=== PATIENT | male | born 1970 | race Caucasian/White ===

== ENCOUNTER 2021-03-28 09:00 | Emergency (ER) | payer OTHER, SELFPAY ==
[2021-03-28] VITALS (7 sets, daily range): BP systolic 130–165; BP diastolic 72–111; PULSE 65–96; RESP 18–20; TEMP 36.6–36.7; O2SAT 94–98; BMI 40.1; BMI 36.9; BMI 38.0; BMI 37.9
--- NOTE | 2021-03-28 09:20 | XR_ITS ---
PROCEDURE: XR HIP LT 2-3V W/PELVIS CLINICAL INDICATION: PAIN COMPARISON: No exams were available for comparison FINDINGS: No fracture or dislocation is evident. Mild degenerative change of both hip joints. No lytic or blastic change. Unremarkable soft tissues. IMPRESSION: Mild degenerative change of both hip joints. No acute fracture or dislocation of the pelvis or hips. Dictated by: Merlin Encinas 03/28/2021 09:58 Merlin Encinas in [place] 03/28/2021 09:58
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
[2021-03-28 10:32] LABS: Basophils % 0.4 % (0.1-2.0); Eosinophils # 0.1 K/mm3 (0.0-0.4); Eosinophils % 1.3 % (0.1-12.0); Hematocrit 44.5 % (42.0-52.0); Hemoglobin 15.6 g/dL (14.1-18.0); Lymphocytes % 24.6 % (10-50); Mean Corpuscular HGB Conc 35.1 g/dL (31.8-35.4); Mean Corpuscular Hemoglobin 32.1 pg (27.0-31.2); Mean Corpuscular Volume 91.6 fl (80-94); Mean Platelet Volume 7.6 fl (7.4-10.4); Monocytes # 0.6 K/mm3 (0.1-1.0); Monocytes % 7.6 % (1.7-9.3); Neutrophils # 5.4 K/mm3 (1.8-7.8); Neutrophils % 66.1 % (37.0-80.0); Platelet Count 283 K/mm3 (142-424); Red Blood Count 4.86 M/mm3 (4.60-6.20); Red Cell Distribution Width 12.9 % (11.5-17.5); White Blood Count 8.2 K/mm3 (4.8-10.8)
[2021-03-28 10:33] LABS: Chloride 105 mmol/L (98-107); Potassium 4.2 mmoL/L (3.5-5.1); Sodium 136 mmol/L (136-145)
[2021-03-28 10:36] LABS: Anion Gap 9.2 mEq/L (5-15); Blood Urea Nitrogen 15 mg/dl (9-20); Carbon Dioxide 26 mmol/L (22.0-30.0); Creatinine Clearance Estimated 162 mL/min (50-200); Estimated Glomerular Filt Rate 80 ml/min (>60); GFR (African American) 97 ML/MIN (>60)
[2021-03-28 10:37] LABS: Calcium 8.8 mg/dl (8.4-10.2); Glucose 111 mg/dl (74-100)
--- NOTE | 2021-03-28 11:05 | PC.NURSE ---
WHILE DISCHARGING PATIENT, STATED THEY WERE CONFUSED AND EXPRESSED CONCERN ABOUT NOT KNOWING WHERE PATIENT'S HIP PAIN IS COMING FROM. NEONATAL SPECIALIST SPOKE WITH PATIENT AND AT THIS TIME AND SUGGESTED BEING TRANSFERRED TO ER FOR FURTHER EVALUATION. REPORT GIVEN TO Meka MANUEL RN
--- NOTE | 2021-03-28 11:28 | CT_ITS ---
PROCEDURE: CT HIP LT W CON CLINICAL HISTORY: Left hip pain COMPARISON: Plain films from earlier the same day TECHNIQUE: Axial images obtained with sagittal and coronal reformats. All CT scans at the facility use one or more dose reduction, viz: automated exposure control, ma/kV adjustment per patient size (including targeted exams where dose is matched to indication, i.e. head), or iterative reconstruction technique. FINDINGS: There are a few small bilateral groin lymph nodes present. No pelvic soft tissue abnormality. There are mild degenerative changes of both hip joints. No acute fracture or dislocation. No lytic or blastic lesions. No focal fluid collections are seen. There are minimal inflammatory changes in subcutaneous fat about the left hip consistent with minimal cellulitis changes. No focal fluid collection is seen to suggest abscess. Visualized bladder is normal. A few central prostate gland calcifications are present. IMPRESSION: Mild degenerative change of both hip joints. No focal fluid collection is seen to suggest abscess. Minimal inflammatory changes about the left hip consistent with minimal cellulitis changes. A few small bilateral groin lymph nodes likely reactive. Dictated by: Merlin Encinas 03/28/2021 12:26 Merlin Encinas in [place] 03/28/2021 12:26
--- NOTE | 2021-03-28 11:43 | PC.NURSE ---
pt to rad.
== END 2021-03-28 13:24 | disposition home or self-care (01) ==
LOC: UTC 10:53 → ER 11:14
PROVIDERS: Nurse Practitioner Family; Emergency Provider Emergency Medicine; PCP Family Medicine
DX: L03.116 Cellulitis of left lower limb (principal)
CPT/HCPCS: 73502; 73701; 80048; 85025; 96374; 96375; 99282; Q9967

== ENCOUNTER 2021-08-19 10:26 | Emergency (ER) | payer SELFPAY ==
[2021-08-19 10:40] VITALS: BP 182/99; PULSE 81; RESP 16; TEMP 36.6; O2SAT 96; BMI 36.1
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
[2021-08-19 11:07] VITALS: BP 198/107; PULSE 87; RESP 16; TEMP 36.6; O2SAT 97; BMI 36.1
--- NOTE | 2021-08-19 11:09 | HMH.EDGENADL ---
ED Disposition Clinical Impression: Nasal fracture Qualifiers: Encounter type: initial encounter Fracture type: closed Qualified Code(s): S02.2XXA - Fracture of nasal bones, initial encounter for closed fracture Facial contusion Qualifiers: Encounter type: initial encounter Qualified Code(s): S00.83XA - Contusion of other part of head, initial encounter Disposition: Still a Patient Condition on Discharge: Good Instructions: DI for Nose Fracture Additional Instructions: Ice 20 minutes 3-4 times a day for swelling and pain. Tylenol or ibuprofen for pain. Follow-up with ENT, Dr. Branch, call for appointment. Referrals: Provider,MD Arjun [Primary Care Provider] - Rodolfo Branch MD [Staff Physician] - - Critical Care Critical Care Time: No Attestation: On 08/19/21, the high probability of a clinically significant, sudden or life threatening deterioration of the following system(s) required my full and direct attention, intervention and personal management. The time I documented below is in addition to time spent performing reported procedures but includes the following listed in this critical care notation. Medical Decision Making - Jm Inquiry Pt receiving controlled substance: No Vital Signs: 08/19/21 10:40 08/19/21 11:07 Temperature 97.8 F 97.8 F Temperature Source Oral Oral Pulse Rate [Left] 81 87 Respiratory Rate 16 16 Blood Pressure [Right Arm] 182/99 H 198/107 H Blood Pressure Mean [Right Arm] 126 137 Blood Pressure Source [Right Arm] Automatic Cuff Blood Pressure Position [Right Arm] Sitting 02 Sat by Pulse Oximetry 96 97 Oxygen Delivery Method Room Air - CT Data CT Scan: Head, C-Spine, Other (facial) Time Received: 12:[address] Reviewed: Yes: I have viewed the radiologist's interpretation Findings Narrative: PROCEDURE: CT HEAD/BRAIN WO CON CLINICAL INDICATION: facial trauma from fall COMPARISON: CT HDWO CT HEAD W/O CONTRAST from 10/12/2015 TECHNIQUE: Axial images obtained. All CT scans at the facility use one or more dose reduction, viz: automated exposure control, ma/kV adjustment per patient size (including targeted exams where dose is matched to indication, i.e. head), or iterative reconstruction technique. FINDINGS: No midline shift, mass effect, intracranial hemorrhage, hydrocephalus, or extra-axial fluid collection is evident. Low-density changes are present in the right inferior colliculus to the cerebral peduncle. This is nonspecific and could be due to an old area of infarction. Hypodensity is also present in the left basal ganglia not significantly changed and could be due to an old small lacunar infarction or choroidal fissure cyst. No acute calvarial fracture. The calvarium has an unremarkable appearance. No mastoid effusion. No sinus air-fluid level. IMPRESSION: No acute intracranial findings. Low-density changes in the midbrain on the right as described above which could be related to an old infarction. Multiple sclerosis could also cause this appearance. Nonemergent MRI may provide further evaluation. Dictated by: Vinayak Mae MD 08/19/2021 12:40 Vinayak Mae MD in [place] 08/19/2021 12:40 PROCEDURE: CT CERVICAL SPINE WO CON CLINICAL INDICATION: facial trauma from fall COMPARISON: CT CSWO CT CERVICAL SPINE W/O CONT from 10/12/2015 TECHNIQUE: Axial images obtained with sagittal and coronal reformats. All CT scans at the facility use one or more dose reduction, viz: automated exposure control, ma/kV adjustment per patient size (including targeted exams where dose is matched to indication, i.e. head), or iterative reconstruction technique. Axial spiral CT scanning performed of the cervical spine beginning at the base of the skull and continuing to the upper T-spine. 3-D multiplanar reconstruction with 3-D manipulation of volumetric data set in image rendering was completed by the radiologist and/o
--- NOTE | 2021-08-19 11:12 | PC.NURSE ---
JASKARAN ZHANG at
--- NOTE | 2021-08-19 11:14 | CT_ITS ---
PROCEDURE: CT FACIAL BONES WO CON CLINICAL HISTORY: facial trauma from fall COMPARISON: CT HDWO CT HEAD W/O CONTRAST from 10/12/2015 TECHNIQUE: Axial images obtained with sagittal and coronal reformats. All CT scans at the facility use one or more dose reduction, viz: automated exposure control, ma/kV adjustment per patient size (including targeted exams where dose is matched to indication, i.e. head), or iterative reconstruction technique. FINDINGS: Nondisplaced fracture involves the anterior aspect of the nasal bone. There is moderate leftward nasal septal deviation. No septal fracture apparent. Septal spur projects toward the left with narrowing of the left nasal canal. There is a small right spenser bullosa. Mild mucosal thickening is present in the frontal ethmoid region. No sinus air-fluid level. IMPRESSION: Nondisplaced nasal bone fracture. Leftward nasal septal deviation with septal spur and narrowing of the left nasal canal. Dictated by: Vinayak Mae MD 08/19/2021 12:49 Vinayak Mae MD in [place] 08/19/2021 12:49
--- NOTE | 2021-08-19 11:14 | CT_ITS ---
PROCEDURE: CT CERVICAL SPINE WO CON CLINICAL INDICATION: facial trauma from fall COMPARISON: CT CSWO CT CERVICAL SPINE W/O CONT from 10/12/2015 TECHNIQUE: Axial images obtained with sagittal and coronal reformats. All CT scans at the facility use one or more dose reduction, viz: automated exposure control, ma/kV adjustment per patient size (including targeted exams where dose is matched to indication, i.e. head), or iterative reconstruction technique. Axial spiral CT scanning performed of the cervical spine beginning at the base of the skull and continuing to the upper T-spine. 3-D multiplanar reconstruction with 3-D manipulation of volumetric data set in image rendering was completed by the radiologist and/or technologist with the supervision of the radiologist on independent workstation. FINDINGS: There is non fusion of the anterior arch of C1 and the posterior arch of C1. No acute fracture or dislocation is evident. There is straightening of the cervical lordosis which could be due to patient positioning or muscle spasm. Lung apices are clear. No prevertebral soft tissue swelling. IMPRESSION: Cervical spine intact with no fracture nor subluxation. Dictated by: Vinayak Mae MD 08/19/2021 12:43 Vinayak Mae MD in [place] 08/19/2021 12:43
--- NOTE | 2021-08-19 11:14 | CT_ITS ---
PROCEDURE: CT HEAD/BRAIN WO CON CLINICAL INDICATION: facial trauma from fall COMPARISON: CT HDWO CT HEAD W/O CONTRAST from 10/12/2015 TECHNIQUE: Axial images obtained. All CT scans at the facility use one or more dose reduction, viz: automated exposure control, ma/kV adjustment per patient size (including targeted exams where dose is matched to indication, i.e. head), or iterative reconstruction technique. FINDINGS: No midline shift, mass effect, intracranial hemorrhage, hydrocephalus, or extra-axial fluid collection is evident. Low-density changes are present in the right inferior colliculus to the cerebral peduncle. This is nonspecific and could be due to an old area of infarction. Hypodensity is also present in the left basal ganglia not significantly changed and could be due to an old small lacunar infarction or choroidal fissure cyst. No acute calvarial fracture. The calvarium has an unremarkable appearance. No mastoid effusion. No sinus air-fluid level. IMPRESSION: No acute intracranial findings. Low-density changes in the midbrain on the right as described above which could be related to an old infarction. Multiple sclerosis could also cause this appearance. Nonemergent MRI may provide further evaluation. Dictated by: Vinayak Mae MD 08/19/2021 12:40 Vinayak Mae MD in [place] 08/19/2021 12:40
--- NOTE | 2021-08-19 11:16 | PC.NURSE ---
notified CT of orders on pt.
--- NOTE | 2021-08-19 11:57 | PC.NURSE ---
pt return from CT
[2021-08-19 13:21] VITALS: BP 177/101; PULSE 77; RESP 17; TEMP 37.1; O2SAT 96
== END 2021-08-19 13:21 | disposition still patient (30) ==
LOC: UTC 11:04 → ER 11:05
PROVIDERS: Emergency Provider Physician Assistant
DX: S02.2XXA Fracture of nasal bones, initial encounter for closed fracture (principal); S00.83XA Contusion of other part of head, initial encounter; W01.198A Fall on same level from slipping, tripping and stumbling with subsequent striking against other object, initial encounter; Y92.73 Farm field as the place of occurrence of the external cause
CPT/HCPCS: 70450; 70486; 72125; 99282

== ENCOUNTER → 2022-05-10 06:11 | Outpatient (CLI) | payer SELFPAY ==
[2022-05-09 21:35] LABS: Alanine Aminotransferase 33 U/L (12-78); Albumin Level 3.4 g/dl (3.5-5.0); Albumin/Globulin Ratio 1.3 (1.1-1.8); Alkaline Phosphatase 76 U/L (38-126); Anion Gap 8.1 mEq/L (5-15); Aspartate Amino Transferase 31 U/L (17-59); Blood Urea Nitrogen 12 mg/dl (9-20); Calcium 8.9 mg/dl (8.4-10.2); Carbon Dioxide 28 mmol/L (22.0-30.0); Chloride 106 mmol/L (98-107); Estimated Glomerular Filt Rate 71 ml/min (>60); GFR (African American) 86 ML/MIN (>60); Globulin 2.7 g/dL (1.3-3.2); Glucose 125 mg/dl (74-100); Potassium 4.1 mmoL/L (3.5-5.1); Sodium 138 mmol/L (136-145); Total Protein,Serum 6.1 g/dl (6.3-8.2)
[2022-05-09 21:36] LABS: Bilirubin,Total < 0.1 mg/dl (0.2-1.3)
== END ==
LOC: LAB.DROPOF 06:11
PROVIDERS: PCP Family Medicine; Visit Provider Family Medicine
DX: I10 Essential (primary) hypertension (principal)
CPT/HCPCS: 80053

== ENCOUNTER → 2022-11-17 11:00 | Outpatient (CLI) | payer SELFPAY ==
[2022-11-17 19:06] LABS: Alanine Aminotransferase 45 U/L (12-78); Albumin/Globulin Ratio 1.3 (1.1-1.8); Alkaline Phosphatase 58 U/L (38-126); Aspartate Amino Transferase 39 U/L (17-59); Bilirubin,Total 0.4 mg/dl (0.2-1.3); Blood Urea Nitrogen 14 mg/dl (9-20); Calcium 8.9 mg/dl (8.4-10.2); Carbon Dioxide 29 mmol/L (22.0-30.0); Chloride 103 mmol/L (98-107); Estimated Glomerular Filt Rate 71 ml/min (>60); GFR (African American) 86 ML/MIN (>60); Globulin 3.1 g/dL (1.3-3.2); Glucose 92 mg/dl (74-100); Sodium 137 mmol/L (136-145); Total Protein,Serum 7.1 g/dl (6.3-8.2)
== END ==
LOC: LAB.DROPOF 12-12 23:58
PROVIDERS: PCP Family Medicine; Visit Provider Family Medicine
DX: I10 Essential (primary) hypertension (principal)
CPT/HCPCS: 80053

== ENCOUNTER → 2023-07-14 09:06 | Outpatient (CLI) | payer SELFPAY ==
[2023-07-13 19:04] LABS: Alanine Aminotransferase 51 U/L (12-78); Albumin Level 3.9 g/dl (3.5-5.0); Albumin/Globulin Ratio 1.2 (1.1-1.8); Alkaline Phosphatase 68 U/L (38-126); Anion Gap 12.6 mEq/L (5-15); Aspartate Amino Transferase 40 U/L (17-59); Bilirubin,Total 0.4 mg/dl (0.2-1.3); Blood Urea Nitrogen 16 mg/dl (9-20); Calcium 9.2 mg/dl (8.4-10.2); Carbon Dioxide 29 mmol/L (22.0-30.0); Chloride 101 mmol/L (98-107); Chol/HDL Ratio 5.9 (1-3.5); Cholesterol 148 mg/dl (140-200); Estimated Glomerular Filt Rate 64 ml/min (>60); GFR (African American) 77 ML/MIN (>60); Globulin 3.2 g/dL (1.3-3.2); Glucose 105 mg/dl (74-100); HDL Cholesterol 25 mg/dl (40-60); Potassium 4.6 mmoL/L (3.5-5.1); Sodium 138 mmol/L (136-145); Total Protein,Serum 7.1 g/dl (6.3-8.2); Triglycerides 134 mg/dl (30-150); VLDL Cholesterol 27 mg/dL (0-40)
[2023-07-13 19:22] LABS: Direct LDL Cholesterol 93.21 mg/dL (100-129)
[2023-07-13 19:35] LABS: Prostate Specific Ag Screen 0.6 ng/ml (0.0-4.0); Thyroid Stimulating Hormone 1.89 uIU/mL (0.465-4.68)
[2023-07-13 19:56] LABS: Hemoglobin A1C 5.7 % (4.0-6.0)
== END ==
LOC: LAB.DROPOF 09:08
PROVIDERS: PCP Family Medicine; Visit Provider Nurse Practitioner
DX: E78.5 Hyperlipidemia, unspecified (principal); I10 Essential (primary) hypertension; R73.9 Hyperglycemia, unspecified; Z12.5 Encounter for screening for malignant neoplasm of prostate
CPT/HCPCS: 80053; 80061; 83036; 84443; G0103

== ENCOUNTER → 2023-07-14 09:22 | Outpatient (CLI) | payer SELFPAY | PROVIDERS: PCP Family Medicine; Visit Provider Family Medicine | DX: R73.9 Hyperglycemia, unspecified (principal); I10 Essential (primary) hypertension; E78.5 Hyperlipidemia, unspecified; Z12.5 Encounter for screening for malignant neoplasm of prostate ==

== ENCOUNTER → 2023-09-04 14:02 | Outpatient (CLI) | payer SELFPAY ==
[2023-09-04 19:07] LABS: Alanine Aminotransferase 53 U/L (12-78); Albumin/Globulin Ratio 1.4 (1.1-1.8); Alkaline Phosphatase 76 U/L (38-126); Anion Gap 10.7 mEq/L (5-15); Aspartate Amino Transferase 37 U/L (17-59); Bilirubin,Total 0.2 mg/dl (0.2-1.3); Blood Urea Nitrogen 19 mg/dl (9-20); Calcium 8.9 mg/dl (8.4-10.2); Carbon Dioxide 28 mmol/L (22.0-30.0); Chloride 102 mmol/L (98-107); Estimated Glomerular Filt Rate 71 ml/min (>60); GFR (African American) 85 ML/MIN (>60); Globulin 2.9 g/dL (1.3-3.2); Glucose 104 mg/dl (74-100); Potassium 3.7 mmoL/L (3.5-5.1); Sodium 137 mmol/L (136-145); Total Protein,Serum 6.9 g/dl (6.3-8.2)
== END ==
LOC: LAB.DROPOF 09-05 14:02
PROVIDERS: PCP Family Medicine; Visit Provider Family Medicine
DX: I10 Essential (primary) hypertension (principal)
CPT/HCPCS: 80053

== ENCOUNTER 2024-03-13 09:34 | Outpatient (CLI) | payer SELFPAY ==
[2024-03-13 17:58] LABS: Basophils # 0.1 K/mm3 (0-0.2); Basophils % 0.8 % (0.1-2.0); Eosinophils # 0.1 K/mm3 (0.0-0.4); Eosinophils % 1.3 % (0.1-12.0); Hematocrit 49.9 % (42.0-52.0); Hemoglobin 16.4 g/dL (14.1-18.0); Lymphocytes # 2.4 K/mm3 (0.7-4.5); Lymphocytes % 28.2 % (10-50); Mean Corpuscular HGB Conc 32.9 g/dL (31.8-35.4); Mean Corpuscular Hemoglobin 32.6 pg (27.0-31.2); Mean Corpuscular Volume 99.3 fl (80-94); Mean Platelet Volume 8.6 fl (7.4-10.4); Monocytes # 0.7 K/mm3 (0.1-1.0); Monocytes % 7.9 % (1.7-9.3); Neutrophils # 5.4 K/mm3 (1.8-7.8); Neutrophils % 61.8 % (37.0-80.0); Platelet Count 340 K/mm3 (142-424); Red Blood Count 5.03 M/mm3 (4.60-6.20); Red Cell Distribution Width 13.7 % (11.5-17.5); White Blood Count 8.7 K/mm3 (4.8-10.8)
[2024-03-13 18:30] LABS: Alanine Aminotransferase 75 U/L (12-78); Albumin Level 4.2 g/dl (3.5-5.0); Albumin/Globulin Ratio 1.4 (1.1-1.8); Alkaline Phosphatase 55 U/L (38-126); Anion Gap 12.6 mEq/L (5-15); Aspartate Amino Transferase 47 U/L (17-59); Bilirubin,Total 0.7 mg/dl (0.2-1.3); Blood Urea Nitrogen 21 mg/dl (9-20); Calcium 9.7 mg/dl (8.4-10.2); Carbon Dioxide 30 mmol/L (22.0-30.0); Chloride 98 mmol/L (98-107); Estimated Glomerular Filt Rate 58 ml/min (>60); GFR (African American) 70 ML/MIN (>60); Globulin 3.1 g/dL (1.3-3.2); Glucose 131 mg/dl (74-100); Potassium 3.6 mmoL/L (3.5-5.1); Sodium 137 mmol/L (136-145); Total Protein,Serum 7.3 g/dl (6.3-8.2)
[2024-03-13 18:40] LABS: NT Pro Brain Natriuretic Pep. < 20.0 pg/mL (0-125)
== END 2024-03-13 23:59 | disposition home or self-care (01) ==
LOC: LAB.DROPOF 03-15 09:34
PROVIDERS: PCP Nurse Practitioner; Visit Provider Nurse Practitioner
DX: I10 Essential (primary) hypertension (principal); R60.0 Localized edema; R06.02 Shortness of breath
CPT/HCPCS: 80053; 83880; 85025

== ENCOUNTER 2024-09-12 22:35 | Emergency (ER) | payer OTHER, SELFPAY ==
--- NOTE | 2024-09-12 22:27 | ECG_ITS ---
APPROVED REPORT Exam: Resting ECG HR:86 bpm ECG Measurements Heart Rate 86 AXES IN 162 P 61 QRSd 105 QRS 62 QT 358 T 65 QTc 401 Conclusion SINUS RHYTHM MODERATE ST DEPRESSION [0.05+ mV ST DEPRESSION] ABNORMAL ECG Electronically signed by : MIREILLE JULIO, 09/13/2024 17:26:06
[2024-09-12 22:39] VITALS: BP 145/84; PULSE 91; RESP 22; TEMP 36.7; O2SAT 97; BMI 43.2
[2024-09-12 22:44] VITALS: BP 139/88; PULSE 82; PULSE 91; RESP 17; TEMP 36.7; O2SAT 97
--- OUTSIDE RECORDS SUMMARY | 2024-09-12 22:51 | XMS_ITS | Referral Summary ---
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
--- OUTSIDE RECORDS SUMMARY | 2024-09-12 22:51 | XMS_ITS | Encounter Summary ---
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 Name Role Phone Unavailable Primary Care Provider Unavailabl e Encounter Details Date Type Department Care Team (Late st Contact Info) Description 12/22/2007 - 12/22/2007 11:59 PM EDT Emergency [facility] Emergency Department [address] [place] [address] Ashwin Pope MD [address] [place] [address] Discharge Disposition: Home or Self Care Social History Tobacco Use Types Packs/Day Years Used Date Smoking Tobacco: Never Assessed Sex and Gender Information Value Date Recorded Sex Assigned at Not on file Legal Sex Male 7:14 PM EDT Gender Identity Not on file Sexual Orientation Not on file documented as of this encounter ED Notes * Ashwin Pope MD - 12/24/2007 12:00 AM EDT This document is confidential medical information. Unauthorized disclosure or use of this information is prohibited by law. If you are not the intended recipient of this document, please advise us by calling immediately [phone]. [place], [place] Emergency Room Report Name: ANGEL MCGRAW Unit #: [id number] Loc/Rm: GSED Location: [facility] EMERGENCY DEPARTMENT : 74 Dictating Physician: Ashwin Pope Admitting Physician: CHIEF COMPLAINT: Leg injury. HISTORY OF PRESENT ILLNESS: The patient is a 37-year-old male who stated he fell at work just prior to coming in; he slipped on the ice. He stated that he felt a pop on the right ankle and right lower leg; that is where it hurts, mostly on the outside. No real knee pain. No paresthesias. No other injury. PAST MEDICAL HISTORY: None. CURRENT MEDICATIONS: None. ALLERGIES: No known drug allergies. SOCIAL HISTORY: The patient smokes one pack per day. PHYSICAL EXAMINATION: GENERAL: The patient is an awake and alert male, answering questions appropriately. VITAL SIGNS: Temperature is 97.1, respirations are 14, pulse is 91, and blood pressure is 154/75. RIGHT LOWER EXTREMITY: It does reveal some swelling over the distal fibula laterally. He had a little soreness around the ankle with some range of motion of the ankle. There is no knee pain. Good pulses in the foot. Good movement in the toes. No tenderness involving the metatarsals. EMERGENCY DEPARTMENT COURSE: I did x-rays of the tib-fib and ankle, I did not see a definite fracture. I am going to treat him with an Alvino and an Aircast and crutches as needed. I will have him ice it down, elevate it and take ibuprofen. I gave him some Vicodin if needed. He was warned of the side effects of drowsiness. He is to put on some restrictions at work. 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 He is to follow up at occupational health within three to five days and return if he worsens or develops any other problems. IMPRESSION: Acute right ankle sprain. DISPOSITION: The patient was discharged as above. Dictated by: Ashwin Pope M.D. SA [id number] * Ashwin Pope MD - 12/22/2007 12:00 AM EST This document is confidential medical information. Unauthorized disclosure or use of this information is prohibited by law. If you are not the intended recipient of this document, please advise us by calling immediately [phone]. [place], [place] [address] EMERGISOFT ED CHART Date: 12/22/07 Name: ANGEL MCGRAW Unit #: [id number] Loc: GSED Doctor: BRIAN PRUITT : 74 Adm Physician: DEMOGRAPHICS [employer] Patient: ANGEL MCGRAW Sex: M : 1970 Age: 37 yr Account No: [id number] Registration Date: 06:12/22/2007 Address: [address] [place] [address] Address: [place] [address] SSN: [id number] REGISTRATION ED Number: [id number] Marital Status: M Financial Class: WC CALL IN Stated Complaint: fell at work. c/o r ankle pain. TRIAGE Priority: 4 AUBRIE Primary Phys: family care assoc Arrival Time: 05:58 12/22/2007 Triage Time: 05:58 12/22/2007 Mode of Arrival: Walk-in Transport: Under their own power Stated Complaint: fell at work. c/o r ankle pain. Workers Comp: Y COMPLAINTS Complaint: Ankle Injury BED ASSIGNMENTS This document is confidential medical information. Unauthorized disclosure or use of this information is prohibited by law. If you are not the intended recipient of this document, please advise us by calling immediately [phone]. [place] [address] EMERGISOFT ED CHART Name: ANGEL MCGRAW Unit #: [id number] Loc: GSED : 74 Bed Name: 02 Event Time: 06:22:36 Bed Name: 02 (Removed From) Event Time: 07:25:41 PROVIDER ASSIGNMENT Provider Name: Katy Rodriguez Time In: 06:23:42 Provider Name: MD Ashwin Pope Time In: 06:35:01 TRIAGE HISTORY ALLERGIES Allergy: *No Known Allergies Entry Time: 06:12/22/2007 KD CURRENT MEDICATIONS Name: *NONE Entry Time: 06:12/22/2007 KD PAST ILLNESS HISTORY Illness: *None Entry Time: 06:12/22/2007 KD PAST SURGERY HISTORY Surgery: Oral Surgery Entry Time: 06:12/22/2007 KD PSYCHO-SOCIAL HISTORY Social History: *Smoker - 1 PPD Entry Time: 06:12/22/2007 KD Social History: *Alcohol - None Entry Time: 06:12/22/2007 KD This document is confidential medical information. Unauthorized disclosure or use of this information is prohibited by law. If you are not the intended recipient of this document, please advise us by calling immediately [phone]. [address] ED CHART Name: ANGEL MCGRAW Unit #: [id number] Loc: GSED : 74 Social History: Patient Screened For Evidence of Abuse or Neglect Entry Time: 06:12/22/2007 KD SELF TREATMENT Aid: *No Treatment Prior to Arrival Entry Time: 06:12/22/2007 KD TRIAGE TREATMENT Aid: * No Treatment in Triage Entry Time: 06:12/22/2007 KD VITAL SIGNS Entry Time: 05:58 12/22/2007 KD Temp: 97.10 F - *Oral BP: 154/75 - Left Arm - Sitting - Machine Pulse: 91 - Monitor Resp: 14 [facility] Pain Level: 8 Entry Time: 06:17 12/22/2007 [facility] Notes: Is pt able to respond to questions RE: Advance Directives?: Y patient have a Living Will (LW)?: N 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 This document is confidential medical information. Unauthorized disclosure or use of this information is prohibited by law. If you are not the intended recipient of this document, please advise us by calling immediately [phone]. [place], [place] [address] EMERGISOFT ED CHART Name: ANGEL MCGRAW Unit #: [id number] Loc: GSED : 74 Circumstance: work Occurred: hour(s) ago 2 Location: location: lateral right ankle superior to the lateral malleolus location: lateral right ankle superior to the lateral malleolus Pain Quality: aching Pain Severity Scale 1-10: now: now: 8 Pain Duration: onset: onset: 2 hour(s) ago Timing: steadily worse Associated Sign(s)/ Symptom(s): joint pain with motion Present Note:ankle painful with movement Chronic Condition(s) none. Neurologic Assessment: All negative except: affect: appropriate behavior: appropriate level of consciousness: alert and oriented motor response: obeys commands motor strength: moves all extremities pupillary reaction: LALI speech: clear Cardiovascular Assessment: All negative except: calf tenderness: Normal capillary refill: Capillary refill less than 2 seconds cardiac rate: Cardiac rate within normal range This document is confidential medical information. Unauthorized disclosure or use of this information is prohibited by law. If you are not the intended recipient of this document, please advise us by calling immediately [phone]. [place] [address] [facility] Name: ANGEL MCGRAW Unit #: [id number] Loc: GSED : 74 cardiac rhythm: Cardiac rhythm normal cardiac sounds: Cardiac sounds normal, no gallop, murmur or rub noted edema: No edema noted pulses: Pulses palpable Respiratory Assessment: All negative except: breath sounds: Normal chest wall: Normal cough productivity: Normal respirations: Normal respiratory effort: Normal Gastrointestinal Assessment: All negative except: appearance: Abdomen is soft, non-distended. bowel sounds: Bowel sounds present to all quadrants. Bowel sounds noted at 5 to 24 per minute. complaints: Denies complaints of nausea, vomiting or diarrhea. guarding: No pain to palpation. intake of liquids and solids: Tolerates solids and liquids without difficulty. last bowel movement: Bowel movements within normal pattern and consistency. tenderness: Abdomen is nontender. Genitourinary Assessment: All negative except: genital complaints: Denies genital complaints urinary complaints: Denies complaints of burning, frequency, hematuria, urgency, nocturia and retention. urine odor: Denies urine odor. Musculoskeletal Assessment: Note:pt not able to step onto right ankle gait unsteady due to injury. PHYSICIAN ASSESSMENT TREATMENT Treatment: Patient/Staff Interaction - pt from waiting room per w/c Time: 06:30 12/22/2007 Provider: SLOAN Notes: c/o right ankle pain after he twisted his ankle at work around 3.20 am Treatment: Patient/Staff Interaction - MD in Room with Patient Time: 06:31 12/22/2007 Provider: VS This document is confidential medical information. Unauthorized disclosure or use of this information is prohibited by law. If you are not the intended recipient of this document, please advise us by calling immediately [phone]. [place] [address] [facility] Name: ANGEL MCGRAW Unit #: [id number] Loc: GSED : 72 Notes: Dr Pope at bedside to evaluate patient. Treatment: Transport of patient - *To: Time: 06:35 12/22/2007 Provider: VS Question: Via Answer: *Stretcher Question: Place Answer: *RADIOLOGY Question: RN Escorting Answer: Yes Question: Report Given using SBAR Handoff Process? Answer: Yes Treatment: Transport of patient - Back to Unit from: Time: 06:50 12/22/2007 Provider: VS Question: Via Answer: *Stretcher Question: Place Answer: *RADIOLOGY Question: RN Escorting Answer: No Question: Report Received using SBAR Handoff Process? Answer: Yes Treatment: Orthopedic/Splinting - Air Splint applied to the right ankle Time: 07:15 12/22/2007 Provider: VS Treatment: Orthopedic/Splinting - Crutches : Instructions Given and Returned Demostration Time: 07:12/22/2007 Provider: VS Treatment: Orthopedic/Splinting - Air Splint applied to the right ankle Time: 07:12/22/2007 Provider: VS Treatment: *Discharge - Discharge Time: 07:23 12/22/2007 Provider: VS Question: Notes Answer: Pt is discharge home with prescription vicodin Question: Condition Answer: Unchanged Question: Instructions Answer: Verbalizes Understanding This document is confidential medical information. Unauthorized disclosure or use of this information is prohibited by law. If you are not the intended recipient of this document, please advise us by calling immediately [phone]. [place], [place] [address] EMERGISOFT ED CHART Name: ANGEL MCGRAW Unit #: [id number] Loc: GSED : 74 Question: Rx Given Answer: Yes Question: Transportation Answer: Ambulatory Question: LOC Answer: Alert,Oriented X3 Question: IV Catheter Answer: N/A Question: Patients Pain level (On a 1-10 scale) Answer: 8 MEDICATIONS I AND O IV PRESCRIPTIONS Prescription: VICODIN Last Entered: 07:15 12/22/2007 Sig Name: Take 1-2 tabs by mouth every 4 to 6 hours as needed for pain Dispense: 20 Substitution: Y Label: N Print СВЕТЛАНА No: N ASSESSMENT NOTES ORDERS/RESULTS ORDER Order Name: Discharge Order Type: N/A Ordered By: Ashwin Pope Ordered Time: 07:16 12/22/2007 [facility] ORDER Order Name: Ankle > 2 Views - Right* Order Type: N/A This document is confidential medical information. Unauthorized disclosure or use of this information is prohibited by law. If you are not the intended recipient of this document, please advise us by calling immediately [phone]. [place] [address] [facility] Name: ANGEL MCGRAW Unit #: [id number] Loc: GSED : 74 Ordered By: Ashwin Pope Ordered Time: 06:36 12/22/2007 [facility] Noted Time: :12/22/2007 Completed Time: 07:12/22/2007 ORDER Order Name: Tibia-Fibula - Right* Order Type: N/A Ordered By: Ashwin Pope Ordered Time: 06:36 12/22/2007 [facility] Noted Time: 06:39 12/22/2007 Completed Time: 07:06 12/22/2007 CHARGES NEW CHARGES Name: Orthopedic/Splinting - Air Splint applied to the right ankle Count: 1 Entered: 07:12/22/2007 VS Name: Orthopedic/Splinting - Crutches : Instructions Given and Returned Demostration Count: 1 Entered: :12/22/2007 VS Name: Orthopedic/Splinting - Air Splint applied to the right ankle Count: 1 Entered: :12/22/2007 VS DISCHARGE Disposition: Discharge Disposition Time: 07:13 12/22/2007 Condition: Good Departure Time: 07:25:41 DIAGNOSES Diagnosis Name: Sprain/Strain, Ankle, Acute Diagnosis Code: 0 INSTRUCTIONS Discharge Instructions: Sprain, Ankle This document is confidential medical information. Unauthorized disclosure or use of this information is prohibited by law. If you are not the intended recipient of this document, please advise us by calling immediately [phone]. [place], [place] [address] [facility] Name: ANGEL MCGRAW Unit #: [id number] Loc: GSED : 74 WORK RELEASE INSTRUCTIONS Work Release Instructions: *May Return to Work or School Tomorrow with Restrictions Work Release Instructions: Restrictions: Crutch Use for 3-5 Days Work Release Instructions: Restrictions: limited weight bearing Work Release Instructions: Restrictions: until seen by [facility] in 3-5 days DISCHARGE PRESCRIPTIONS Medication: VICODIN Dosage: 5 mg Route: PO Dispense: 20 Substitution: Y Label: N Print СВЕТЛАНА No: N SIGNATURE Bruce Christopher MD [facility] Jennifer Burns VS documented in this encounter Plan of Treatment Not on file documented as of this encounter Procedures Procedure Name Priority Date/Time Associated Diagnosis Comments XR ANKLE RIGHT AP LATERAL AND OBLIQUE Routine 12/22/2007 6:37 AM EDT documented in this encounter Results * X-ray ankle right AP lat and obl (12/22/2007 6:37 AM EDT) Anatomical Region Laterality Modality Ankle Foot Toe Right, Tib Fib Right Radiographic Imaging 12/22/2007 6:37 AM EDT Narrative 12/22/2007 1:04 PM EDT TWO VIEW RIGHT TIBIA AND FIBULA AND THREE VIEWS OF THE RIGHT ANKLE 12/22/07 ? INDICATION: ??Ankle pain. ??Foot pain. ? RIGHT ANKLE ? FINDINGS: Three views of the right ankle demonstrate mild lateral malleolar soft tissue swelling. ??No evidence of fracture or dislocation is evident. ? IMPRESSION: ? Mild lateral malleolar soft tissue swelling. ??No evidence of fracture or dislocation. ? RIGHT TIBIA AND FIBULA ? FINDINGS: ??Two views of the right tibia and fibula demonstrate no evidence of fracture or dislocation. ? IMPRESSION: ? No evidence of fracture or dislocation. ? Procedure Note Rafi Madison MD - 04/17/2012 TWO VIEW RIGHT TIBIA AND FIBULA AND THREE VIEWS OF THE RIGHT ANKLE12/22/07 INDICATION: Ankle pain. Foot pain. RIGHT ANKLE FINDINGS: Three views of the right ankle demonstrate mild lateralmalleolar soft tissue swelling. No evidence of fracture or dislocation is evident. IMPRESSION: Mild lateral malleolar soft tissue swelling. No evidence of fracture ordislocation. RIGHT TIBIA AND FIBULA FINDINGS: Two views of the right tibia and fibula demonstrate no evidenceof fracture or dislocation. IMPRESSION: No evidence of fracture or dislocation. us Ashwin Pope MD RAD Final Result documented in this encounter Visit Diagnoses Not on filedocumented in this encounter
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
--- OUTSIDE RECORDS SUMMARY | 2024-09-12 22:51 | XMS_ITS | Encounter Summary ---
Author Organization [facility] [place] [address] Care Team Providers Care Environmental Manager Name Role Phone Unavailable Primary Care Provider Unavailabl e Encounter Details Date Type Department Care Team (Latest Contact Info) Description 09/13/2020 Travel Social History Tobacco Use Types Packs/Day Years [...] AM EST documented as of this encounter Plan of Treatment Not on file documented as of this encounter Visit Diagnoses Not on filedocumented in this encounter
--- OUTSIDE RECORDS SUMMARY | 2024-09-12 22:51 | XMS_ITS | Encounter Summary ---
Author Organization [facility] [place] [address] Care Team Providers Care Meteorologist In Charge Name Role Phone Unavailable Primary Care Provider Unavailabl e Reason for Visit * EMG (Routine) - Closed Specialty Diagnoses / Procedures Referred By Contact Referred To Contact Psychiatry & Neurology-Neurology / Electromyography Diagnoses Postconcussion syndrome Paresthesias Procedures EMG Tj Dc MD [address] [place] [address] Phone: tel: fax: Luigi Whiteside MD [address] [place] [address] Phone: tel: fax: Referral ID Status Reason Start Date Expiration Date Visits Re quested Visits Authorized [id number] Closed 09/13/2020 09/13/2021 1 1 Encounter Details Date Type Department Care Team (Latest Contact Info) Description 09/13/2020 9:10 AM EST - 09/13/2020 11:59 PM EST Hospital Encounter [facility]G [address], [place] [address] Stevo Grace Edjeromy Bilateral carpal tunnel syndrome (Primary Dx) Discharge Disposition: Home or Self Care Social [...] AM EST documented as of this encounter Medications at Time of Discharge meclizine (ANTIVERT) 25 mg Oral Tablet Take by mouth 2 times daily as needed for Dizziness. methocarbamoL (ROBAXIN) 500 mg Oral Tablet Take 1 Tab by mouth. Nightly prn 05/28/2020 documented as of this encounter Discharge Disposition Disposition Code Departure Means Destination Home or Self Care documented in this encounter Plan of Treatment [...] on the left. Luigi Whiteside M.D. Diplomate, Citizen Of [place] [employer] Narrative SEP OFFICE [...] documented in this encounter Visit Diagnoses Diagnosis Bilateral carpal tunnel syndrome- Primary Carpal tunnel syndrome documented in this encounter
--- OUTSIDE RECORDS SUMMARY | 2024-09-12 22:51 | XMS_ITS | Encounter Summary ---
Author Organization Healthcare Address [address] [place] [address] Care Team Providers Care Aerobics Teacher Name Role Phone Duane Flores MD Unavailable Unavail able Encounter Details Date Type Department Care Team (Late st Contact Info) Description 07/06/2024 Orders Only External Location [address] [place] [address] Gordon Bai PA [address] [place] [address] Social History Tobacco Use Types Packs/Day Years [...] on file documented as of this encounter Plan of Treatment Not on file documented as of this encounter Procedures Procedure Name Priority Date/Time Associated Diagnosis Comments CT NEURO OUTSIDE IMAGES 07/06/2024 7:24 PM EDT documented in this encounter Results * CT NEURO OUTSIDE IMAGES (07/06/2024 7:24 PM EDT) Anatomical Region Laterality Modality Computed Tomogra phy 07/06/2024 7:24 PM EDT us Gordon [facility] CT PROCEDURES Final Result documented in this encounter Visit Diagnoses Not on filedocumented in this encounter Additional Health Concerns Assessment Noted Time A fall risk assessment has been complete d for the patient 01/02/2022 2:27 PM EDT documented as of this encounter Care Teams Aerobics Teacher Relationship Specialty Start Date End Date Duane Flores MD Resident Neurology 01/02/22 documented as of this encounter
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
--- OUTSIDE RECORDS SUMMARY | 2024-09-12 22:51 | XMS_ITS | Encounter Summary ---
Author Organization [place] [address] Care Team Providers Care Oil Derrick Operator Name Role Phone Unavailable Primary Care Provider Unavailabl e Reason for Visit * Reason Onset Date Comments Results 06/28/2020 Encounter Details Date Type Department Care Team (Late st Contact Info) Description 06/28/2020 Telephone SEP Neurology [facility] [address] [place] [address] Dc, Tj Nuñez MD [address] [place] [address] Results Social History Tobacco Use Types Packs/Day Years [...] have Coronavirus / COVID-19? No / Unsure 06/25/2020 12:05 PM EDT documented as of this encounter Miscellaneous Notes * Telephone Encounter - Nasra Figueroa CMA - 06/28/2020 11:52 AM EDT Called and OK per [facility] to LMOM detailed. * Telephone Encounter - Tj Dc MD - 06/28/2020 11:04 AM EDT That is correct, labwork, MRIs unrevealing. Next step in this process is the Neuropsych testing--would let us know as well if component of PTSD. * Telephone Encounter - Nasra Figueroa CMA - 06/28/2020 10:12 AM EDT Patient Called back and was advised of all. Expessed frustration and gratitude for what the drs aretrying to do to figure his dx out, but does want to know what next? What is going to help? Dizziness and memory issues continue. Did have have a VV with the Neuropsych Doctor jose Li a f/u in his office next month. Also, Was riding w/taylor in his truck the other day and was scared to . That never happens, couldn't even talk he was so scared. Couldn't understand it. ? If PTSD. * Telephone Encounter - Soledad Nicole CMA - 06/28/2020 10:03 AM EDT LMTC for results. * Telephone Encounter - Soledad Nicole CMA - 06/28/2020 10:03 AM EDT ----- Message from Tj Dc MD sent at 06/25/2020 5:01 PM EDT ----- One mild disc bulge, but nothing that would cause him paralysis at times. Essentially normal for age. documented in this encounter Plan of Treatment Not on file documented as of this encounter Visit Diagnoses Not on filedocumented in this encounter
--- OUTSIDE RECORDS SUMMARY | 2024-09-12 22:51 | XMS_ITS | Encounter Summary ---
Author Organization [place] [address] Care Team Providers Care Gasket Inspector Name Role Phone Unavailable Primary Care Provider Unavailabl e Reason for Visit * Reason Onset Date Comments Results 06/25/2020 MRI Encounter Details Date Type Department Care Team (Late st Contact Info) Description 06/25/2020 Telephone SEP Neurology [facility] [address] [place] [address] Dc, Tj Nuñez MD [address] [place] [address] Results (MRI ) Social History Tobacco Use Types Packs/Day Years [...] encounter Miscellaneous Notes * Telephone Encounter - Kimberly Frank MA - 06/25/2020 4:41 PM EDT Called patient and advised of all, patient expressed understanding of all. * Telephone Encounter - Kimberly Frank MA - 06/25/2020 4:40 PM EDT ----- Message from Tj Dc MD sent at 06/25/2020 4:33 PM EDT ----- Let patient know that MRI of the brain was essentially unrevealing. Awaiting final read on the MRI CSpine. documented in this encounter Plan of Treatment Not on file documented as of this encounter Visit Diagnoses Not on filedocumented in this encounter
--- OUTSIDE RECORDS SUMMARY | 2024-09-12 22:51 | XMS_ITS | Encounter Summary ---
Author Organization Healthcare Address [address] [place] [address] Care Team Providers Care Sign Painter Helper Name Role Phone Duane Flores MD Unavailable Unavail able Encounter Details Date Type Department Care Team (Late st Contact Info) Description 07/06/2024 Orders Only External Location [address] [place] [address] Gordon Bai PA [address] [place] [address] Social History Tobacco Use Types [...] Name Priority Date/Time Associated Diagnosis Comments CT MSK OUTSIDE IMAGES 07/06/2024 7:33 PM EDT documented in this encounter Results * CT MSK OUTSIDE IMAGES (07/06/2024 7:33 PM EDT) Anatomical Region Laterality Modality Computed Tomogra phy 07/06/2024 7:33 PM EDT us Gordon SKELTON IMCollins CT PROCEDURES Final Result documented in this encounter Visit Diagnoses Not on filedocumented in this encounter Additional Health Concerns Assessment Noted Time A fall risk assessment has been complete d for the patient 01/02/2022 2:27 PM EDT documented as of this encounter Care Teams Sign Painter Helper Relationship Specialty Start Date End Date Duane Flores MD Resident Neurology 01/02/22 documented as of this encounter
--- OUTSIDE RECORDS SUMMARY | 2024-09-12 22:51 | XMS_ITS | Encounter Summary ---
Author Organization [facility] [place] [address] Care Team Providers Care Motion Picture Equipment Supervisor Name Role Phone Unavailable Primary Care Provider Unavailabl e Encounter Details Date Type Department Care Team (Latest Contact Info) Description 09/23/2020 Travel Social History Tobacco Use Types Packs/Day [...] PM EST documented as of this encounter Plan of Treatment Not on file documented as of this encounter Visit Diagnoses Not on filedocumented in this encounter
--- OUTSIDE RECORDS SUMMARY | 2024-09-12 22:51 | XMS_ITS | Encounter Summary ---
Author Organization Healthcare Address [address] [place] [address] Care Team Providers Care Retail Merchandising Manager Name Role Phone Duane Flores MD Unavailable Unavail able Encounter Details Date Type Department Care Team (Late st Contact Info) Description 07/06/2024 Orders Only External Location [address] [place] [address] Gordon Bai PA [address] [place] [address] Social History Tobacco Use Types [...] Diagnosis Comments CT NEURO OUTSIDE IMAGES 07/06/2024 7:26 PM EDT documented in this encounter Results * CT NEURO OUTSIDE IMAGES (07/06/2024 7:26 PM EDT) Anatomical Region Laterality Modality Computed Tomogra phy 07/06/2024 7:26 PM EDT us Gordon MILNER CT PROCEDURES Final Result documented in this encounter Visit Diagnoses Not on filedocumented in this encounter Additional Health Concerns Assessment Noted Time A fall risk assessment has been complete d for the patient 01/02/2022 2:27 PM EDT documented as of this encounter Care Teams Retail Merchandising Manager Relationship Specialty Start Date End Date Duane Flores MD Resident Neurology 01/02/22 documented as of this encounter
--- OUTSIDE RECORDS SUMMARY | 2024-09-12 22:51 | XMS_ITS | Encounter Summary ---
Author Organization Healthcare Address [address] [place] [id number] Care Team Providers Care Fish Header Name Role Phone Duane Flores MD Unavailable Unavail able Encounter Details Date Type Department Care Team (Latest Contact Info) Description 01/02/2022 Travel Social History Tobacco Use Types Packs/Day [...] PM EDT documented as of this encounter Plan of Treatment Not on file documented as of this encounter Visit Diagnoses Not on filedocumented in this encounter Additional Health Concerns Assessment Noted Time A fall risk assessment has been complete d for the patient 01/02/2022 2:27 PM EDT documented as of this encounter Care Teams Fish Header Relationship Specialty Start Date End Date Duane Flores MD Resident Neurology 01/02/22 documented as of this encounter
--- OUTSIDE RECORDS SUMMARY | 2024-09-12 22:51 | XMS_ITS | Clinical Summary ---
Author Organization [facility] Address [address] [facility] [place] [address] Phone Care Team Providers Care Grounds Cleaner Name Role Phone Unavailable Primary Care Provider Unavailabl e Allergies No known active allergies Medications * This document contains information received from the source organization and may not represent a complete record from that organization. methocarbamoL (ROBAXIN) 500 mg Oral Tablet Take 1 Tab by mouth. Nightly prn 05/28/2020 Active meclizine (ANTIVERT) 25 mg Oral Tablet Take by mouth 2 times daily as needed for Dizziness. Active Social History Tobacco Use Types Packs/Day Years Used Date Smoking Tobacco: Every Day Cigarettes Smokeless Tobacco: Current Alcohol Use Standard Drinks/Week Comments Yes 0 (1 standard drink = 0.6 oz pur e alcohol) socially Sex and Gender Information Value Date Recorded Sex Assigned at Not on file Legal Sex Male 7:46 PM EDT Gender Identity Not on file Sexual Orientation Not on file Obstetrics History Last Filed Vital Signs Vital Sign Reading Time Taken Comments Blood Pressure 127/104 09/23/2020 1:52 PM EST Pulse 90 09/23/2020 1:52 PM EST Temperature 36.7 ??C (98 ??F) 09/23/2020 1:48 PM EST Respiratory Rate 17 09/23/2020 1:52 PM EST Oxygen Saturation 97% 09/23/2020 1:52 PM EST Inhaled Oxygen Concentration - - Weight 124.2 kg (273 lb 12.8 oz) 09/13/2020 8:30 AM EST Height 175.3 cm (5' 9 ) 09/13/2020 8:30 AM EST Body Mass Index 40.43 09/13/2020 8:30 AM EST Plan of Treatment Health Maintenance Due Date Last Done Comments Annual Wellness Exam 1974 DTaP/TDaP/Td (1 - Tdap) 1991 Hepatitis B Vaccine (1 of 3 - 19+ 3-dose series) 1991 Cologuard 2017 Colon Cancer Screening 2017 Colonoscopy 2017 FIT 2017 Sigmoidoscopy 2017 Virtual Colonography 2017 Zoster (1 of 2) 2022 COVID-19 Vaccine (1 - 2023-2 5 season) 2024 Influenza Vaccine (#1) 2024 Pneumococcal Vaccine 0-64 Aged Out No longer eligible based on patient's age to complete this topic Insurance [facility] MARIE ASHBY[address] [employer] PLAN [place] [facility] GENERIC WORKERS' COMP on file [facility] Claudia ASHBYIDINES [address] [facility] MARIE GOODRICH [address] [facility] MARIE GOODRICH [address] * Guarantor: Susanne Mcgraw Account Type Relation to Patient Date of Phone Billing Address [place] Personal Family Self
--- OUTSIDE RECORDS SUMMARY | 2024-09-12 22:51 | XMS_ITS | Encounter Summary ---
Author Organization Healthcare Address [address] [place] [address] Care Team Providers Care Insulation Batting Machine Operator Name Role Phone Duane Flores MD Unavailable Unavail able Reason for Visit * Reason Onset Date Comments HCN - Patient Message 10/24/2022 OT order Encounter Details Date Type Department Care Team (Late st Contact Info) Description 10/24/2022 Telephone [place] [facility] [address] [place] [address] Antolin Love MD [address] [id number] HCN - Patient Message (OT order) Social History Tobacco Use Types Packs/Day Years [...] on file documented as of this encounter Miscellaneous Notes * Telephone Encounter - Hanane Eason - 10/24/2022 1:14 PM EST No current or past orders for OT on file. Pt last saw LIZY Flores's June resident consult and canceled today's resident consult. Called and LVM for pt letting them know we cannot send an order until they have been seen in our clinic. * Telephone Encounter - Charlene Rojas - 10/24/2022 10:10 AM EST Patient Phone Message Reason for Call: Patient's sister wants to get another OT order sent in the mail. The patient has lost the original.Confirmed the address on file. Please advise. Best contact number and optimal time of day to reach caller: [phone] Note: Please do not reply to this message. Follow-up communication and further actions as a result of this message need to be communicated with the patient directly, if the patient is not active onMyChart. If the patient is active on MyChart, they will receive notification of the communication/outcome via [employer]. documented in this encounter Plan of Treatment Not on file documented as of this encounter Visit Diagnoses Not on filedocumented in this encounter Additional Health Concerns Assessment Noted Time A fall risk assessment has been complete d for the patient 01/02/2022 2:27 PM EDT documented as of this encounter Care Teams Insulation Batting Machine Operator Relationship Specialty Start Date End Date Duane Flores MD Resident Neurology 01/02/22 documented as of this encounter
--- OUTSIDE RECORDS SUMMARY | 2024-09-12 22:51 | XMS_ITS | Encounter Summary ---
Author Organization Healthcare Address [address] [place] [address] Care Team Providers Care Supply Chain Generalist Name Role Phone Unavailable Primary Care Provider Unavailabl e Encounter Details Date Type Department Care Team (Late st Contact Info) Description 03/25/2021 Orders Only [place] [facility] [address] [place] [address] Duane Flores MD Social History Tobacco Use Types Packs/Day Years [...]
--- OUTSIDE RECORDS SUMMARY | 2024-09-12 22:51 | XMS_ITS | Referral Summary ---
Author Organization [facility]OC[facility]N OD Address [address] [place] [address] Phone Care Team Providers Care Back End Engineer Name Role Phone Unavailable Primary Care Provider [...] on file Sexual Orientation Not on file Last Filed Vital Signs Vital Sign Reading [...] 09/13/2020 8:30 AM EST Plan of Treatment Not on file Insurance Claudia [address]SHBY[address] GENERIC WORKERS' COMP on file [facility] * Guarantor: Angel Mcgraw Account Type Relation to Patient Date of Phone Billing Address [place] Personal Family Self
--- OUTSIDE RECORDS SUMMARY | 2024-09-12 22:51 | XMS_ITS | Clinical Summary ---
Author Organization [facility] Address [address] [place] [address] Care Team Providers Care Insulation Supervisor Name Role Phone Unavailable Primary Care Provider Unavailabl e Social History Tobacco Use Types Packs/Day Years Used Date Smoking Tobacco: Never Assessed Sex and Gender Information Value Date Recorded Sex Assigned at Not on file Legal Sex Male 7:14 PM EDT Gender Identity Not on file Sexual Orientation Not on file Plan of Treatment Health Maintenance Due Date Last Done Comments DTap,Tdap,and Td (1 - Tdap) 1983 Colonoscopy 2017 PSA YEARLY 2022 Shingrix (#1) 2022 Influenza Vaccine (#1) 2024 RSV Vaccine (60+ or ) (1 - 1-dose 75+ series) 2047 HPV Aged Out No longer eligi ble based on patient's age to complete this topic Meningococcal conjugate denise nt 4 (MCV4) Aged Out No longer eligible b ased on patient's age to complete this topic Pneumococcal 0-64 Aged Out No longer eligible based on patient's age to complete this topic RSV Immunization (<20 months) Aged Out No longer eligible based on patient's age to complete this topic
--- OUTSIDE RECORDS SUMMARY | 2024-09-12 22:51 | XMS_ITS | Clinical Summary ---
[facility] Address [address] [place] [address] Care Team Providers Care Curriculum Advisory Teacher Name Role Phone Tj Black MD Primary Care Provider [phone] Allergies No known active allergies Social History Tobacco Use Types Packs/Day Years Used Date Smoking Tobacco: Never Assessed Abuse Screen Answer Date Recorded Unsafe at Home or Work/School Not on file Feels Threatened by Someone? Not on file Does Anyone Keep You from Co ntacting Others or Doint Things Outside the Home? Not on file 07/27/2023 Physical Sign of Abuse Present Not on file 1 Housing Stability Answer Date Recorded Current Living Arrangements Not on file 07/15 Potentially Unsafe Housing Conditions Not on jordan e 07/27/2023 Family and Community Support Answer Catracho e Recorded Help with Day-to-Day Activities Not on file 07/27/2023 Lonely or Isolated Not on file 07/27/2023 Employment Answer Date Recorded Do you want help finding or keeping work or a jennifer b? Not on file 07/27/2023 Disabilities Answer Date Recorded Concentrating, Remembering, or Making Decisions Difficulty Not on file 07/27/2023 Doing Errands Independently Difficulty Not on fi le 07/27/2023 Education Answer Date Recorded Help with school or training? Not on file Preferred Language Not on file 07/27/2023 Sex and Gender Information Value Date Recorded [...] Mass Index 35.87 07/12/2022 7:17 PM EDT Plan of Treatment Health Maintenance Due Date Last Done Comments ANNUAL PHYSICAL 1972 COLOGUARD 1972 COLON CANCER SCREENING 5 YEA R SIGMOIDOSCOPY 1972 [address] COLONOGRAPHY 1972 FECAL OCCULT BLOOD TEST 1972 FIT Testing (1 year) 1972 HEPATITIS C SCREENING 1972 TDAP/TD VACCINES (1 - Tdap) 1991 COLONOSCOPY 08/11/2021 08/11/2011 COLORECTAL CANCER SCREENING 08/11/2021 ZOSTER VACCINE (1 of 2) 2022 INFLUENZA VACCINE 04/14/2024 COVID-19 Vaccine (1 - 2023-2 5 season) 2024 Pneumococcal Vaccine 0-64 Aged Out No longer eligible based on patient's age to complete this topic Insurance [employer] Care Teams Curriculum Advisory Teacher Relationship Specialty Start Date End Date Tj Black MD [address] [facility] [address] [place] [address] PCP - General Family Medicine 07/12/22
--- OUTSIDE RECORDS SUMMARY | 2024-09-12 22:51 | XMS_ITS | Clinical Summary ---
Author Organization Healthcare Address [address] [id number] Care Team Providers Care Theatre Instructor Name Role Phone Duane Flores MD Unavailable Unavail able Allergies No known active allergies Medications amitriptyline (Elavil) 10 MG tablet Take 1 tablet (10 mg total) by mouth every night. Please increase dose to 20mg at bedtime after 2 weeks if no response. Maximum is 30mg at bedtime. Discussed with over the phone 30 tablet 2 1 Active lisinopril 10 MG tablet Take 10 mg by mouth 1 (one) time each day. 1 Active naproxen (Naprosyn) 500 MG tablet naproxen 500 mg tablet One tablet twice a day as needed for pain Active Naproxen Sodium (Aleve) 220 MG capsule Aleve 220 mg capsule Take by oral route. Active tiZANidine (Zanaflex) 4 MG tablet tizanidine 4 mg tablet One tablet at bedtime Active Encounters Date Type Department Care Team Description 07/06/2024 Orders Only External Location [address] [place] [address] Gordon Bai PA 07/06/2024 Orders Only External Location [address] [place] [address] Gordon Bai PA 07/06/2024 Orders Only External Location [address] [place] [address] Gordon Bai PA 07/06/2024 Orders Only External Location [address] [place] [address] Gordon Bai PA from Last 3 Months Social History Tobacco Use Types Packs/Day Years [...] Mass Index 36.92 01/02/2022 2:18 PM EDT Plan of Treatment Health Maintenance Due Date Last Done Comments [facility]-Depression Screening 1972 [facility]-HIV Screening 1972 [facility]-Infant/Child/Adol SDOH Screenings 1972 [facility]-Obesity Intervention 1978 [facility]- SDOH Screenings 1990 [facility]-Adult SDOH Screenings 1990 [facility]-DTaP,Tdap,and Td Vaccine s (1 - Tdap) 1991 [facility]-Hepatitis B Vaccines (1 of 3 - 19+ 3-dose series) 1991 CT Colonography 2017 FIT-DNA 2017 FIT 2017 FOBT 2017 Sigmoidoscopy 2017 Colonoscopy 08/11/2021 08/11/2011 [facility]-Colorectal Cancer Screening 08/11/2021 [facility]-Zoster Vaccines (1 of 2) 2022 [id number] Vaccine (1 - 20 24-25 season) 2024 [facility]-Influenza Vaccine (#1) 2024 [facility]-RSV Vaccine: 60+ Years o r (1 - 1-dose 75+ series) 2047 [facility]-Hepatitis C Screening Completed 05/24/2020 [facility]-HIB Vaccines Aged Out No longer e ligible based on patient's age to complete this topic [facility]-HPV Vaccines Aged Out No longer e ligible based on patient's age to complete this topic [facility]-Hepatitis A Vaccines Aged Out No longer eligible based on patient's age to complete this topic [facility]-IPV Vaccines Aged Out No longer e ligible based on patient's age to complete this topic [facility]-Pneumococcal Vaccine: Pediatrics (0 to 5 Years) and At-Risk Patients (6 to 64 Years) Aged Out No long er eligible based on patient's age to complete this topic [facility]-Rotavirus Vaccines Aged Out No lo nger eligible based on patient's age to complete this topic Procedures Procedure Name Priority Date/Time Associated Diagnosis Comments CT MSK OUTSIDE IMAGES 07/06/2024 7:[address] NEURO OUTSIDE IMAGES 07/06/2024 7:[address] NEURO OUTSIDE IMAGES 07/06/2024 7:24 PM EDT XR THORACIC OUTSIDE IMAGES 07/06/2024 6:42 PM EDT HEPATITIS C ANTIBODY - ED W/REFLEX TO HCV QUANT PCR Routine 05/24/2020 1:21 PM EDT COLONOSCOPY 08/11/2011 from Last 3 Months or Most Recently Relevant to Health Maintenance Results * CT MSK OUTSIDE IMAGES (07/06/2024 7:33 PM EDT) Anatomical Region Laterality Modality Computed Tomogra phy 07/06/2024 7:33 PM EDT us Gordon Bai PA IMG CT PROCEDURES Final Result * CT NEURO OUTSIDE IMAGES (07/06/2024 7:26 PM EDT) Only the most recent of2 resultswithin the time period is included. Anatomical Region Laterality Modality Computed Tomogra phy 07/06/2024 7:26 PM EDT us Gordon Bai PA IMG CT PROCEDURES Final Result * XR THORACIC OUTSIDE IMAGES (07/06/2024 6:42 PM EDT) Anatomical Region Laterality Modality Radiographic Saba ging 07/06/2024 6:42 PM EDT us Gordon SKELTON IMG XR PROCEDURES Final Result * [place] Hepatitis C Antibody (05/24/2020 1:21 PM EDT) [place] Hepatitis C Ab NEGATIVE Reference Range: Negative SUNQUEST 05/24/2020 1:21 PM EDT 05/24/2020 1:38 PM EDT us Emre Holcomb MD LAB BLOOD ORDERABLES Final Res ult SUNQUEST * COLONOSCOPY (08/11/2011) Anatomical Region Laterality Modality Endoscopy Narrative 08/11/2011 Ordered by an unspecified provider. Historical Provider GI PROCEDURE ORDERABLES F inal Result from Last 3 Months or Most Recently Relevant to Health Maintenance Care Teams Theatre Instructor Relationship Specialty Start Date End Date Duane Flores MD Resident Neurology 01/02/22
--- OUTSIDE RECORDS SUMMARY | 2024-09-12 22:51 | XMS_ITS | Encounter Summary ---
Author Organization Healthcare Address [address] [place] [address] Care Team Providers Care Train Master Name Role Phone Duane Flores MD Unavailable Unavail able Encounter Details Date Type Department Care Team (Late st Contact Info) Description 07/06/2024 Orders Only External Location [address] [place] [address] Gordon Bai PA [address] [place] [address] Social History Tobacco Use Types [...] Name Priority Date/Time Associated Diagnosis Comments XR THORACIC OUTSIDE IMAGES 07/06/2024 6:42 PM EDT documented in this encounter Results * XR THORACIC OUTSIDE IMAGES (07/06/2024 6:42 PM EDT) Anatomical Region Laterality Modality Radiographic Saba ging 07/06/2024 6:42 PM EDT us Gordon MILNER XR PROCEDURES Final Result documented in this encounter Visit Diagnoses Not on filedocumented in this encounter Additional Health Concerns Assessment Noted Time A fall risk assessment has been complete d for the patient 01/02/2022 2:27 PM EDT documented as of this encounter Care Teams Train Master Relationship Specialty Start Date End Date Duane Flores MD Resident Neurology 01/02/22 documented as of this encounter
--- OUTSIDE RECORDS SUMMARY | 2024-09-12 22:52 | XMS_ITS | Encounter Summary ---
Author Organization [place] [address] Care Team Providers Care Online Content Coordinator Name Role Phone Unavailable Primary Care Provider Unavailabl e Encounter Details Date Type Department Care Team (Late st Contact Info) Description 05/14/1994 1:10 AM EDT - 05/14/1994 11:59 PM EDT Hospital Encounter HST EPIC CON UNK EDG Jan Cannon MD [address] [place] [phone] Social History Tobacco Use Types Packs/Day Years [...]
--- OUTSIDE RECORDS SUMMARY | 2024-09-12 22:52 | XMS_ITS | Encounter Summary ---
Author Organization [place] [address] Care Team Providers Care Business Solution Analyst Name Role Phone Unavailable Primary Care Provider Unavailabl e Reason for Referral * MRI/CAT Scan (Routine) - Closed Specialty Diagnoses / Procedures Referred By Contac t Referred To Contact Radiology Diagnoses Neck pain Procedures CT CERVICAL SPINE WO CONTRAST Joaquin Kapadia MD Phone: tel: fax: Referral ID Status Reason Start Date Expiration Date Visits Re quested Visits Authorized [id number] Closed 02/09/2020 02/08/2021 1 1 Reason for Visit * MRI/CAT Scan (Routine) - Closed Specialty Diagnoses / Procedures Referred By Contac t Referred To Contact Radiology Diagnoses Neck pain Procedures CT CERVICAL SPINE WO CONTRAST Joaquin Kapadia MD Phone: tel: fax: Referral ID Status Reason Start Date Expiration Date Visits Re quested Visits Authorized [id number] Closed 02/09/2020 02/08/2021 1 1 Encounter Details Date Type Department Care Team (Latest Contact Info) Description 02/09/2020 1:00 PM EDT - 02/09/2020 11:59 PM EDT Hospital Encounter [facility] [address] [place] [id number] Joaquin Kapadia MD [address] [facility] [address] Neck pain Discharge Disposition: Home or Self Care Social [...] have Coronavirus / COVID-19? No / Unsure 02/09/2020 12:55 PM EDT documented as of this encounter Medications at Time of Discharge cyclobenzaprine (FLEXERIL) 10 mg Oral Tablet Take 1 Tab by mouth 3 times daily as needed for Muscle spasms (Pain) for up to 30 days. 20 Tab 02/07/2020 03/08/2020 naproxen (NAPROSYN) 500 mg Oral Tablet Take 1 Tab by mouth 2 times daily as needed for Pain for up to 30 days. 30 Tab 02/07/2020 03/08/2020 documented as of this encounter Discharge Disposition Disposition Code Departure Means Destination Home or Self Care documented in this encounter Plan of Treatment Not on file documented as of this encounter Procedures Procedure Name Priority Date/Time Associated Diagnosis Comments CT CERVICAL SPINE WO CONTRAST Routine 02/09/2020 1:30 PM EDT Neck pain documented in this encounter Results * CT CERVICAL SPINE WO CONTRAST (02/09/2020 1:30 PM EDT) Anatomical Region Laterality Modality C-spine Computed Tomogra phy 02/09/2020 1:30 PM EDT Impressions 02/09/2020 3:00 PM EDT No fracture. Possible muscle spasm. Minor degenerative changes as described. Narrative 02/09/2020 3:[address] CERVICAL SPINE WITHOUT CONTRAST, 02/09/2020 1:30 PM ?? CLINICAL HISTORY: ??M54.1-[id number]-FFW-10-CM COMPARISON: ??Cervical spine MRI performed at [facility] on 11/18/2001. PROCEDURE COMMENTS: Multidetector CT of the cervical spine with multiplanar reformatting per protocol. ??Automated exposure control for dose reduction was used. CTDIvol: 35.7 mGy. DLP: 971 mGy-cm. FINDINGS: Interval straightening of the normal cervical lordosis, either positional or due to muscle spasm. Vertebral body heights and alignments preserved. No fracture or bony destructive lesion. Developmental incomplete fusion of both the anterior and posterior arches of C1. Disc heights are largely preserved. No significant spondylosis. Mild right-sided facet arthropathy at thoracic level T1-T2. Minimal noncompressive disc bulging at C3-4. No other disc displacement is evident though soft tissue detail of the spinal canal is largely obscured at and below the C4-5 level due to beam hardening artifact from overlying shoulders. No bony foraminal encroachment. Minimal mucosal thickening included base left maxillary sinus. 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 Procedure Note Sandro Aguero MD - 02/09/2020 CT CERVICAL SPINE WITHOUT CONTRAST, 02/09/2020 1:30 PM CLINICAL HISTORY: M54.1-Cqaxhytcdbc-TNZ-10-CM COMPARISON: Cervical spine MRI performed at [facility] on 11/18/2001. PROCEDURE COMMENTS: Multidetector CT of the cervical spine withmultiplanar reformatting per protocol. Automated exposure control for dose reductionwas used. CTDIvol: 35.7 mGy. DLP: 971 mGy-cm. FINDINGS: Interval straightening of the normal cervical lordosis, either positional or due to muscle spasm. Vertebral body heights and alignments preserved. No fracture or bony destructive lesion. Developmentalincomplete fusion of both the anterior and posterior arches of C1. Disc heights arelargely preserved. No significant spondylosis. Mild right-sided facet arthropathyat thoracic level T1-T2. Minimal noncompressive disc bulging at C3-4. Noother disc displacement is evident though soft tissue detail of the spinal canal islargely obscured at and below the C4-5 level due to beam hardening artifact from overlying shoulders. No bony foraminal encroachment. Minimal mucosalthickening included base left maxillary sinus. Bullous emphysema at the includedlung apices. IMPRESSION: No fracture. Possible muscle spasm. Minor degenerative changes as described. us Joaquin Kapadia MD IMG CT ORDERABLES Final Re sult documented in this encounter Visit Diagnoses Diagnosis Neck pain Cervicalgia documented in this encounter
--- OUTSIDE RECORDS SUMMARY | 2024-09-12 22:52 | XMS_ITS | Encounter Summary ---
Author Organization [place] [address] Care Team Providers Care Bulk Loader Name Role Phone Unavailable Primary Care Provider Unavailabl e Reason for Visit * Reason Onset Date Comments Results 06/23/2020 LABS Encounter Details Date Type Department Care Team (Late st Contact Info) Description 06/23/2020 Telephone SEP Neurology [facility] [address] [place] [address] Dc, Tj Nuñez MD [address] [place] [address] Results (LABS ) Social History Tobacco Use Types Packs/Day [...] have Coronavirus / COVID-19? No / Unsure 06/15/2020 11:12 AM EDT documented as of this encounter Miscellaneous Notes * Telephone Encounter - Iraida Ivory MA - 06/23/2020 8:36 AM EDT Called and spoke with patient and he expressed verbal understanding of all. * Telephone Encounter - Iraida Ivory MA - 06/23/2020 8:36 AM EDT ----- Message from Tj Dc MD sent at 06/10/2020 7:39 AM EDT ----- Please let the patient know that these lab results were normal. documented in this encounter Plan of Treatment Not on file documented as of this encounter Visit Diagnoses Not on filedocumented in this encounter
--- OUTSIDE RECORDS SUMMARY | 2024-09-12 22:52 | XMS_ITS | Encounter Summary ---
Author Organization [address] [address] Care Team Providers Care Political Reporter Name Role Phone Unavailable Primary Care Provider Unavailabl e Reason for Visit * Physical Therapy (Routine) - Closed Specialty Diagnoses / Procedures Referred By Contlexie t Referred To Contact Occupational Therapist / Hand Therapy Diagnoses ORDERS & VISIT SUMMARY TO BE SCANNED IN MEDIA - Left Hand/Thumb Procedures BH PT EVAL 60 Joaquin Kapadia MD Phone: tel: fax: Bell Fraire, OTR/L CHT [address] [place] [address] Phone: tel: fax: Referral ID Status Reason Start Date Expiration Date Visits Re quested Visits Authorized [id number] Closed 02/24/2020 04/12/2020 1 12 Encounter Details Date Type Department Care Team (Latest Contact Info) Description 03/04/2020 7:30 AM EDT - 03/04/2020 11:59 PM EDT Hospital Encounter [facility] [address] [place] [address] [address] [place] [address] Bell Fraire, OTR/L CHT [address] [place] [address] Discharge Disposition: Home or Self Care Social [...] have Coronavirus / COVID-19? No / Unsure 03/12/2020 7:58 AM EDT documented as of this encounter Medications [...] or Self Care documented in this encounter Progress Notes * Bell Fraire, OTR/L CHT - 03/04/2020 7:30 AM EDT Today's Date: 03/04/2020 `?? Initial Evaluation Date:?02/24/2020 ?? Patient Name:?Angel Hernandez? ( Goes by ??Gordon.??) :??1970 ?? HISTORY OF CURRENT PROBLEM/GENERAL INFORMATION Referring Physician:?Joaqiun Kapadia MD Next MD Appointment:?03/04/20 Diagnosis:??left thumb contusion Surgery:- Date of Onset/Injury:02/05/20 Date of Surgery:- PRECAUTIONS:??none ??4 weeks post injury on 03/01/20 ?? VISIT:?4?? Is patient receiving home healthcare services?no (If yes, contact home health agency immediately) ?? FOTO Initial Assessment Completed. ??Next follow up due date: NA. ?? Progress Report/Re-Assessment due:??4 weeks ?? Prior Level of Function With Affected UE:?No limitations Prior Level of ADL Function:??Independent ? SUBJECTIVE: the movement is better but the pain is not 1. no body is telling me anything . ( response to question regarding what his MD says about when he can go back to work in relationship to his reported head injury. 2. Patient asking how long his thumb hand will be ready to go back to work. 3. 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 4. Patient reports they keep telling me the test aren't showing anything then why can't I move my thumb . ?? Mr. Hernandez's medications have not changed since last visit. Work Function: off work ADL Function: - ?? Pain Screening Score, 1-10: 5/10 Increase with ROM Location: Left dorsal thumb and web space, medial thumb MP joint, radial wrist Description/Type: sharp, achy, throbbing ?? OBJECTIVE: TREATMENT/EVALUATION RECEIVED THIS DATE: Thumb AROM: DATE: Right 03/01/20 Left MCP: 55 35 IP: 70 35 Radial Abduction: 45 40 Palmar Abduction: 45 40 Thumb Opposition to SF MCP MP crease PIP crease 03/01/20 Provocative testing: [place]: Right negative Left positive Thumb UCL test: Right stable Left :Stable yet painful ?? Date: 02/27/20 ??03/01/20 ??03/04/20 Hot Pack x 15 min to increase extensibility and to decrease pain hand/wrist/forearm ?? x ??x ??x Manual therapy/Soft Tissue Mobilization: With cream. With cream ??not done. Edema Min ??Mild in thumb and radial wrist Large edema glove ??same Therapeutic Exercise:ROM: Reviewed AROM ex 10 reps opp to P2 of SF. Thumb opposition, Thumb IP/MP blocking Rad/palmar abduction Thumb flex/ext ??10 reps each Thumb opp PIP of SF. ??Ultrasound ?? US ??100% ??1.0 w/cm2 ??3.3 mhz dorsal thumb and web space. ??X ??x- last time. No change with US. Therapeutic Activities: Easy quenching machine operator pegs with thumb. ?? [place] squirreling. Mod difficulty. Small cone stacking Scarf scrunching for thumb flex ext Peg warp picker with thumb opp. To base of SF. Difficulty tying . Splinting: Brace between exercise and light functional use. ??x ??Reports wearing brace 75% of time. Discussed weaning from brace over weekend. therapeutic exercise -Strength: defer x ??quenching machine operator R/L II 103/35 III 98/40 Tip 15/4 3 jaw 20/6 Tuttle /15 ? Patient Instructions: Increase use. ??cont previous HEP Add scarf scrunch for thumb flex/ext and grasp release cylindrical bottle :Large edema glove only as helpful. D/C use if painful or makes hand numb. ??sent note with patient for md appt Wean from brace over weekend. Equipment: ?? Large edema glove ? Assessment/ impression Encouraged light use at home. Need to cont to increase use to get it more coordinated. ??Patient provided education regarding healing process. Patient with many questions regarding his injury and time frame for healing and ability to return to work. ??will most likely discontinue no changes per patient with pain. Will focus tx on functional use and strength for RTW. X Denotes completed that day. ? Progress towards goals: ? ROM ? Strength ? ADLs ? Edema Decreasing ? Decrease in Pain ? Progress towards functional status: - ?? GOALS: SHORT TERM:?? ? Tolerate splint, reporting comfortable fit for??2??weeks. MET ? Achieve full digital extension, full flexion to DPC in??4??weeks. ? Increase active?Wrist??flexion of??left?to 60??degrees in 2??weeks. ? Strength will be measured at??1-2??weeks. ? Decrease to 0-1/10 with exercise in 6 weeks ? Remove jar lids independently in??4-6??weeks ? Independent with fasteners (buttons, zipper, snaps) in 7 weeks ? Independent with ADLs of self care in??4??weeks ? Return to light duty at work in??4??weeks ? GOALS: INTELLECTUAL PROPERTY PARALEGAL: ? Return to full resistive work duties in??6 weeks ?? Percentage of Goals Met: 10% ?? PLAN: Follow Up: 2-3 x week for 4-6 weeks. Pt/family does understand treatment program. ?? Focus on the following: ? Fine Motor ? Function ? ROM ? Strength ? Pain Control ?? Charges: HP, US, TE 15 Total Timed Code Treatment Minutes: 30 Total treatment time in minutes: 45 ? Time in: 7:30 am Time out: 815 ?? Therapist Bell Fraire OTR/L CHT documented in this encounter Miscellaneous Notes * Addendum Note - Bell Fraire OTR/L CHT - 03/04/2020 7:30 AM EDT Encounter addended by: Bell Fraire OTR/L CHT on: 03/12/2020 8:04 AM Actions taken: Clinical Note Signed documented in this encounter Plan of Treatment Not on file documented as of this encounter Visit Diagnoses Not on filedocumented in this encounter
--- OUTSIDE RECORDS SUMMARY | 2024-09-12 22:52 | XMS_ITS | Encounter Summary ---
Author Organization [facility] [place] [address] Care Team Providers Care Bilingual Hr Generalist Name Role Phone Unavailable Primary Care Provider Unavailabl e Encounter Details Date Type Department Care Team (Latest Contact Info) Description 02/24/2020 Travel Social History Tobacco Use Types Packs/Day [...] have Coronavirus / COVID-19? No / Unsure 02/24/2020 8:25 AM EDT documented as of this encounter Plan of Treatment Not on file documented as of this encounter Visit Diagnoses Not on filedocumented in this encounter
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
--- OUTSIDE RECORDS SUMMARY | 2024-09-12 22:52 | XMS_ITS | Encounter Summary ---
Author Organization [facility] [place] [place] [address] Care Team Providers Care Loading Unit Operator Name Role Phone Unavailable Primary Care Provider Unavailabl e Reason for Visit * Physical Therapy (Routine) - Closed Specialty Diagnoses / Procedures Referred By Contac t Referred To Contact Occupational Therapist / Hand Therapy Diagnoses ORDERS & VISIT SUMMARY TO BE SCANNED IN MEDIA - Left Hand/Thumb Procedures BH PT EVAL 60 Joaquin Kapadia MD Phone: tel: fax: Bell Fraire, OTR/L CHT [address] [place] [address] Phone: tel: fax: Referral ID Status Reason Start Date Expiration Date Visits Re quested Visits Authorized [id number] Closed 02/24/2020 04/12/2020 1 12 Encounter Details Date Type Department Care Team (Latest Contact Info) Description 03/01/2020 8:26 AM EDT - 03/01/2020 11:59 PM EDT Hospital [facility] [place] [address] [place] [address] [address] [place] [address] Kell Mckenzie, OTR/L CHT Discharge Disposition: Home or Self Care Social [...] have Coronavirus / COVID-19? No / Unsure 03/01/2020 8:26 AM EDT documented as of this encounter [...] documented in this encounter Progress Notes * Kell Mckenzie, OTR/L CHT - 03/01/2020 8:30 AM EDT Today's Date: 03/01/2020 `?? Initial Evaluation Date:?02/24/2020 ?? Patient Name:?Angel Hernandez? Goes by ??Gordon.?? :??1970 ?? HISTORY OF CURRENT PROBLEM/GENERAL INFORMATION Referring Physician:?Joaquin Kapadia MD Next MD Appointment:?03/04/20 Diagnosis:??left thumb contusion Surgery:- Date of Onset/Injury:02/05/20 Date of Surgery:- PRECAUTIONS:??none ??4 weeks post injury on 03/01/20 ?? VISIT:?3? Is patient receiving home healthcare services?no (If yes, contact home health agency immediately) ?? FOTO Initial Assessment Completed. ??Next follow up due date: NA. ?? Progress Report/Re-Assessment due:??4 weeks ?? Prior Level of Function With Affected UE:?No limitations Prior Level of ADL Function:??Independent ? SUBJECTIVE: 1. no body is telling me anything [...] Function: - ?? Pain Screening Score, 1-10: 2-8/10 Increase with ROM Location: Left dorsal thumb and web space, medial thumb MP joint, radial wrist Description/Type: sharp, achy, throbbing ?? OBJECTIVE: TREATMENT/EVALUATION RECEIVED THIS DATE: Thumb AROM: DATE: Right 03/01/20 Left MCP: 55 35 IP: 70 35 Radial Abduction: 45 40 Palmar Abduction: 45 40 Thumb Opposition to SF MCP MP crease PIP crease Provocative testing: Flaquita: Right negative Left positive Thumb UCL test: Right stable Left :Stable yet painful ?? Date: 02/27/20 ??03/01/20 ?? Hot Pack x 15 min to increase extensibility and to decrease pain hand/wrist/forearm ?? x ??x ?? Manual therapy/Soft Tissue Mobilization: With cream. With cream ?? Edema Min ??Mild in thumb and radial wrist Large edema glove ?? Therapeutic Exercise:ROM: Reviewed AROM ex 10 reps opp to P2 of SF. Thumb opposition, Thumb IP/MP blocking Rad/palmar abduction Thumb flex/ext ?Ultrasound ?? US ??100% ??1.0 w/cm2 ??3.3 mhz dorsal thumb and web space. ??X ?? Therapeutic Activities: Easy special education classroom aide pegs with thumb. ?? [place] squirreling. Mod difficulty. Small cone stacking Scarf scrunching for thumb flex ext ?? Splinting: Brace between exercise and light functional use. ??x ?? therapeutic exercise -Strength: defer x ? Patient Instructions: Increase use. ??cont previous HEP Add scarf scrunch for thumb flex/ext and grasp release cylindrical bottle :Large edema glove only as helpful. D/C use if painful or makes hand numb. ?? Equipment: ?? Large edema glove ? Assessment/ impression Encouraged light use at home. Need to cont to increase use to get it more coordinated. ??Patient provided education regarding healing process. Patient with many questions regarding his injury and time frame for healing and ability to return to work. ?? X Denotes completed that day. ? Progress towards goals: ? ROM ? Strength ? ADLs ? Edema Decreasing ? Decrease in Pain ? Progress towards functional status: - ?? GOALS: SHORT TERM:?? ? Tolerate splint, reporting comfortable fit for??2??weeks. ? Achieve full digital extension, full flexion [...] light duty at work in??4??weeks ? 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 Return to full resistive work duties in??6 weeks ?? Percentage of Goals Met: -% ?? PLAN: Follow Up: 2-3 x week for 4-6 weeks. Pt/family does understand treatment program. ?? Focus on the following: ? Fine Motor ? Function ? ROM ? Strength ? Pain Control ?? Charges: HP, US, MT 15, TE 15 Total Timed Code Treatment Minutes: 40 Total treatment time in minutes: 55 ? Time in: 8:30 am Time out: 9:25 ?? Therapist: FUAD Grant, CHT documented in this encounter Plan of Treatment Not on file documented as of this encounter Visit Diagnoses Not on filedocumented in this encounter
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
--- OUTSIDE RECORDS SUMMARY | 2024-09-12 22:52 | XMS_ITS | Encounter Summary ---
Author Organization [place] [address] Care Team Providers Care Application Services Manager Name Role Phone Unavailable Primary Care [...] Bell Fraire, OTR/L CHT [address] [place] [address] Phone: tel: fax: Referral ID Status Reason Start Date Expiration Date Visits Re quested Visits Authorized [id number] Closed 02/24/2020 04/12/2020 1 12 Encounter Details Date Type Department Care Team (Latest Contact Info) Description 03/16/2020 7:30 AM EDT - 03/16/2020 11:59 PM EDT Hospital Encounter [facility] Hand Therapy [place] [address] [place] [address] [address] [place] [address] Bell Fraire, OTR/L CHT [address] [place] [address] Discharge Disposition: Home or Self Care Social [...] have Coronavirus / COVID-19? No / Unsure 03/16/2020 7:32 AM EDT documented as of this encounter Discharge Disposition Disposition Code Departure Means Destination Home or Self Care documented in this encounter Progress Notes * Bell Fraire, JOSE FR/Suze CHT - 03/16/2020 7:30 AM EDT Today's Date: 03/16/2020 `?? Initial Evaluation Date:?02/24/2020 ?? Patient Name:?Angel Hernandez? ( Goes by ??Gordon.??) :??1970 ?? HISTORY OF CURRENT PROBLEM/GENERAL INFORMATION Referring Physician:?Joaquin Kapadia MD Next MD Appointment:?03/18/20 Diagnosis:??left thumb contusion Surgery:- Date of Onset/Injury:02/05/20 Date of Surgery:- PRECAUTIONS:??none ? VISIT:?5 Is patient receiving home healthcare services?no (If yes, contact home health agency immediately) ?? FOTO Initial Assessment Completed. ??Next follow up due date: NA. ?? Progress Report/Re-Assessment due:??4 weeks ?? Prior Level of Function With Affected UE:?No limitations Prior Level of ADL Function:??Independent ? SUBJECTIVE: certain movements are ok. But I can't pull it back it hurts when I use it But then states I don't use it Mr. Hernandez's medications have not changed since last visit. Work Function: off work ADL Function: - ?? Pain Screening Score, 1-10: 1/10 at rest Location: Left dorsal thumb and web space, medial thumb MP joint, radial wrist Description/Type: sharp, achy, throbbing ?? OBJECTIVE: TREATMENT/EVALUATION RECEIVED THIS DATE: Thumb AROM: DATE: Right 03/01/20 Left 03/12/20 MCP: 55 35 55 IP: 70 35 70 Radial Abduction: 45 40 Palmar Abduction: 45 40 Thumb Opposition to SF MCP MP crease PIP crease Base of SF Wrist flex 45 Wrist ext 45 03/01/20 Provocative testing: Flaquita: Right negative Left positive Thumb UCL test: Right stable Left :Stable yet painful ?? Date: 02/27/20 ??03/01/20 ??03/04/20 03/12/20 5.5 weeks post injury 03/16/20 Hot Pack x 15 min to increase extensibility and to decrease pain hand/wrist/forearm ?? x ??x ??x x x Manual therapy/Soft Tissue Mobilization: With cream. With cream ??not done. Not done - Edema Min ??Mild in thumb and radial wrist Large edema glove ??same same - Therapeutic Exercise:ROM: Reviewed AROM ex 10 reps opp to P2 of SF. Thumb opposition, Thumb IP/MP blocking Rad/palmar abduction Thumb flex/ext ??10 reps each Thumb opp PIP of SF. 10 reps Full PROM. Resists some. ??Ultrasound ?? US ??100% ??1.0 w/cm2 ??3.3 mhz dorsal thumb and web space. ??X ??x- last time. No change with US. Discontinue. - Therapeutic Activities: Easy frozen pie maker pegs with thumb. ?? [place] squirreling. Mod difficulty. Small cone stacking Scarf scrunching for thumb flex ext Peg pick and shovel man with thumb opp. To base of SF. Difficulty tying . BTE no resistance 5 tools . irene pick and shovel man green clothes pin. 1/2 with blue. BTE light resistance Same tools. Splinting: Brace between exercise and light functional use. ??x ??Reports wearing brace 75% of time. Discussed weaning from brace over weekend. Wearing brace same Reports 75% of time. Not wearing in tx today only compression glove. Wean from brace. [place]. therapeutic exercise -Strength: defer x ??frozen pie maker R/L II 103/35 III 98/40 Tip 27/01 3 jaw 03/04 [place] Reassess Thurs prior to MD appt. ? ICE after tx for 10 min Ice after tx for 10 min Patient Instructions: Increase use. ??cont previous HEP Add scarf scrunch for thumb flex/ext and grasp release cylindrical bottle :Large edema glove only as helpful. D/C use if painful or makes hand numb. ??Sent note with patient for md appt Wean from brace over weekend. Less splint More functional use. Keep reinforcing out of splint more. Equipment: ?? Large edema glove ? Assessment/ impression Encouraged light use at home. Need to cont to increase use to get it more coordinated. ??Patient provided education regarding healing process. Patient with many questions regarding his injury and time frame for healing and ability to return to work. ??Will most likely discontinue no changes per patient with pain. Will focus tx on functional use and strength for RTW. Tolerated fair. Millicent use fingers and thumb. Able to perform BTE tools but needed ICE after. TOlerated fair. Less painafter BTE except he felt like thumb got caught MD note next visit. X Denotes completed that day. ? Progress towards goals: ? ROM ? Strength ? ADLs ? Edema Decreasing ? Decrease in Pain ? Progress towards functional status: -reports he tried to lift a bucket and his wrist hurt. ?? GOALS: SHORT TERM:?? ? Tolerate splint, reporting comfortable fit for??2??weeks. MET ? Achieve full digital extension, full flexion to DPC in??4??weeks. MET ? Increase active?Wrist??flexion of??left?to 60??degrees in 2??weeks. ? Strength will be measured at??1-2??weeks. MET Increase left frozen pie maker strength to 80# 4 weeks Increase 3 jaw pinch to 10 lb. 4 weeks ? Decrease to 0-1/10 with exercise in 6 weeks ? Remove jar lids independently in??4-6??weeks ? Independent with fasteners (buttons, zipper, snaps) in 7 weeks. ? Independent with ADLs of self care in??4??weeks. ? Return to light duty at work in??4??weeks. ? 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 Return to full resistive work duties in??6 weeks ?? Percentage of Goals Met: 40% ?? PLAN: Follow Up: 2-3 x week for 3 weeks. Pt/family does understand treatment program. ?? Focus on the following: ? Fine Motor ? Function ? ROM ? Strength ? Pain Control ?? Charges: HP, 1 MT 15, TE 15, ice Total Timed Code Treatment Minutes: 40 Total treatment time in minutes: 55 ? Time in: 730 am Time out 825 am ?? Therapist:KRISHNA Rodriguez/Suze CHT documented in this encounter Plan of Treatment Not on file documented as of this encounter Visit Diagnoses Not on filedocumented in this encounter
--- OUTSIDE RECORDS SUMMARY | 2024-09-12 22:52 | XMS_ITS | Encounter Summary ---
Author Organization [facility] [place] [address] Care Team Providers Care Finisher Operator Name Role Phone Unavailable Primary Care Provider Unavailabl e Encounter Details Date Type Department Care Team (Latest Contact Info) Description 03/16/2020 Travel Social History Tobacco Use Types Packs/Day [...]
--- OUTSIDE RECORDS SUMMARY | 2024-09-12 22:52 | XMS_ITS | Encounter Summary ---
Author Organization [facility] [place] [address] Care Team Providers Care Extension Course Counselor Name Role Phone Unavailable Primary Care Provider Unavailabl e Encounter Details Date Type Department Care Team (Latest Contact Info) Description 06/04/2020 Travel Social History Tobacco Use Types Packs/Day [...] have Coronavirus / COVID-19? No / Unsure 06/04/2020 4:57 PM EDT documented as of this encounter Plan of Treatment Not on file documented as of this encounter Visit Diagnoses Not on filedocumented in this encounter
--- OUTSIDE RECORDS SUMMARY | 2024-09-12 22:52 | XMS_ITS | Encounter Summary ---
Author Organization [place] [address] Care Team Providers Care Snuff Container Inspector Name Role Phone Unavailable Primary Care Provider Unavailabl e Encounter Details Date Type Department Care Team (Late st Contact Info) Description 02/12/2009 11:25 PM EDT - 02/16/2009 10:45 AM EDT Hospital Encounter HST 2AO Eric Sellers MD [address] [facility] [address] [place] [id number] Rasheed Galindo MD Social History Tobacco Use Types Packs/Day Years Used Date Smoking Tobacco: Never Assessed Sex and Gender Information Value Date Recorded Sex Assigned at Not on file Legal Sex Male 7:46 PM EDT Gender Identity Not on file Sexual Orientation Not on file documented as of this encounter Discharge Summaries * Unknown, U - 05/06/2010 12:22 PM EDT documented in this encounter H&P Notes * Unknown, U - 05/06/2010 12:32 PM EDT documented in this encounter Consult Notes * Unknown, U - 05/06/2010 12:26 PM EDT documented in this encounter Plan of Treatment Scheduled Orders Name Type Priority Associated Diagnoses Orde r Schedule XR FLAT AND UPRIGHT ABDOMEN Imaging Routine Once for 1 Occur rences starting 12/23/2009 until 12/23/2009, 1 completed US RIGHT UPPER QUADRANT Imaging Routine Once for 1 Occur rences starting 12/23/2009 until 12/23/2009, [address] ABD/PELVIS CPA TAX Imaging Routine Once fo r 1 Occurrences starting 12/23/2009 until 12/23/2009, 1 completed documented as of this encounter Procedures Procedure Name Priority Date/Time Associated Diagnosis Comments CT ABD/PELVIS CPA TAX Routine 02/14/2009 11: 00 AM EDT XX FLAT AND UPRIGHT ABDOMEN Routine 02/13/2009 2:12 PM EDT US RIGHT UPPER QUADRANT Routine 02/13/2009 7:21 AM EDT documented in this encounter Results * CT ABD/PELVIS CPA TAX (02/14/2009 11:00 AM EDT) Anatomical Region Laterality Modality Other 02/14/2009 11:0 0 AM EDT Narrative 02/14/2009 11:[address] of the abdomen and pelvis with contrast, 11-12 a.m., 14 Feb 2009, [id number] Pain, semi 5 cc [id number]-[id number], no priors Special images of the lung bases and bones are normal. CT of the abdomen. Special images of the liver and spleen show no significant focal lesion. The pancreas and adrenals and kidneys are normal. The abdominal bowel including the appendix is normal. There is no periaortic adenopathy. There is, however, mesenteric lymphadenopathy. The largest of the mesenteric lymph nodes measures 20 mm. This mesenteric lymphadenopathy could represent either mesenteric lymphadenitis or, less likely, tumor involvement of the mesenteric lymph nodes. CT of the pelvis There is no pelvic adenopathy. The seminal vesicles and prostate are normal. The pelvic bowel is normal. Impression, Mesenteric lymphadenopathy. [place] ? Paid Search Marketing Analyst- MELINA CORRAL ? Reading Physician- MELINA CORRAL ? Released Date Time- 02/14/09 1129 Procedure Note Melina Corral W - 12/23/[address] of the abdomen and pelvis with contrast, 11-12 a.m., 14 Feb 2009, [id number] Pain, semi 5 cc [id number]-[id number], no priors Special images of the lung bases and bones are normal. CT of the abdomen. Special images of the liver and spleen show no significant focal lesion. The pancreas and adrenals and kidneys are normal. The abdominal bowel including the appendix is normal. There is no periaortic adenopathy. There is, however, mesenteric lymphadenopathy. The largest of the mesenteric lymph nodes measures 20 mm. This mesenteric lymphadenopathy could represent either mesenteric lymphadenitis or, less likely, tumor involvement of the mesenteric lymph nodes. CT of the pelvis There is no pelvic adenopathy. The seminal vesicles and prostate are normal. The pelvic bowel is normal. Impression, Mesenteric lymphadenopathy. Heladio Paid Search Marketing Analyst- MELINA CORRAL MD Reading Physician- MELINA CORRAL MD Released Date Time- 02/14/09 1129 Rasheed Galindo MD [facility] RICAL Final Result * XR FLAT AND UPRIGHT ABDOMEN (02/13/2009 2:12 PM EDT) Anatomical Region Laterality Modality Other 02/13/2009 2:12 PM EDT Narrative 02/13/2009 2:08 PM EDT THREE VIEW Abdomen Indication- Concern for C. Difficile. History- Concern for C. Difficile. Four views of the abdomen including decubitus view demonstrate a nonobstructive bowel gas pattern. There is no gross evidence of free air. Impression- Nonobstructive bowel gas pattern. ? Paid Search Marketing Analyst- GAEL HUERTA ? Reading Physician- RALPH GUAJARDO ??M.D. ? Released Date Time- 02/13/09 1437 Procedure Note Ralph Guajardo - 12/23/2009 THREE VIEW Abdomen Indication- Concern for C. Difficile. History- Concern for C. Difficile. Four views of the abdomen including decubitus view demonstrate a nonobstructive bowel gas pattern. There is no gross evidence of free air. Impression- Nonobstructive bowel gas pattern. Paid Search Marketing Analyst- GAEL Kumar Physician- RALPH GUAJARDO M.D. Released Date Time- 02/13/09 1437 Rasheed Galindo MD [facility] HISTO RICAL Final Result * US RIGHT UPPER QUADRANT (02/13/2009 7:21 AM EDT) Anatomical Region Laterality Modality Other 02/13/2009 7:21 AM EDT Narrative 02/13/2009 8:26 AM EDT RUQ US ABD Right upper quadrant sonogram, 51 images, 7-27 a.m., 13 Feb 2009, [id number] Right upper quadrant pain, no priors Limited images of the pancreas and right kidney are normal. No focal liver lesion is evident. There is no gallstone, gallbladder wall thickening, or bile duct dilatation. The common bile duct measures less than 2 mm. There is some increased signal in the gallbladder lumen. This could represent either sludge or ring down artifact. Impression, No gallstone, wall thickening, or bile duct dilatation. I cannot exclude a small amount of sludge. Marked ? Paid Search Marketing Analyst- MELNIA CORRAL ? Reading Physician- MELINA CORRAL ??MD ? Released Date Time- 02/13/09826 Procedure Note Melina Corral W - 12/23/2009 RUQ US ABD Right upper quadrant sonogram, 51 images, 7-27 a.m., 13 Feb 2009, [id number] Right upper quadrant pain, no priors Limited images of the pancreas and right kidney are normal. No focal liver lesion is evident. There is no gallstone, gallbladder wall thickening, or bile duct dilatation. The common bile duct measures less than 2 mm. There is some increased signal in the gallbladder lumen. This could represent either sludge or ring down artifact. Impression, No gallstone, wall thickening, or bile duct dilatation. I cannot exclude a small amount of sludge. Marked Paid Search Marketing Analyst- MELINA CORRAL MD Reading Physician- MELINA CORRAL MD Released Date Time- 02/13/09826 Rasheed Galindo MD [facility] HISTO RICAL Final Result documented in this encounter Visit Diagnoses Not on filedocumented in this encounter
--- OUTSIDE RECORDS SUMMARY | 2024-09-12 22:52 | XMS_ITS | Encounter Summary ---
Author Organization [place] [address] Care Team Providers Care Cant Hooker Name Role Phone Unavailable Primary Care Provider Unavailabl e Encounter Details Date Type Department Care Team (Late st Contact Info) Description 11/19/1994 12:30 AM EST - 11/19/1994 11:59 PM EST Hospital Encounter HST EPIC CON UNK COV Hudson Torres MD [address] [place] [phone] Social History Tobacco Use Types Packs/Day [...]
--- OUTSIDE RECORDS SUMMARY | 2024-09-12 22:52 | XMS_ITS | Encounter Summary ---
Author Organization [place] [address] Care Team Providers Care Nutrition Faculty Member Name Role Phone Unavailable Primary Care Provider Unavailabl e Encounter Details Date Type Department Care Team (Late st Contact Info) Description 05/23/2000 Hospital Encounter HST UNKNFTT Generic, Historical Provider Social History Tobacco Use Types Packs/Day Years [...]
--- OUTSIDE RECORDS SUMMARY | 2024-09-12 22:52 | XMS_ITS | Encounter Summary ---
Author Organization [facility] [place] [address] Care Team Providers Care Fur Machine Operator Name Role Phone Unavailable Primary Care Provider Unavailabl e Encounter Details Date Type Department Care Team (Latest Contact Info) Description 06/09/2020 Travel Social History Tobacco Use Types Packs/Day [...] have Coronavirus / COVID-19? No / Unsure 06/09/2020 8:59 AM EDT documented as of this encounter Plan of Treatment Not on file documented as of this encounter Visit Diagnoses Not on filedocumented in this encounter
--- OUTSIDE RECORDS SUMMARY | 2024-09-12 22:52 | XMS_ITS | Encounter Summary ---
Author Organization [place] [address] Care Team Providers Care Sap Consultant Name Role Phone Unavailable Primary Care Provider Unavailabl e Reason for Visit * Reason Onset Date Comments Referral 06/10/2020 more info Encounter Details Date Type Department Care Team (Late st Contact Info) Description 06/10/2020 Telephone SEP Neurology [facility] [address] [place] [address] DcTj MD [address] [facility] [address] [place] [address] Referral (more info) Social History Tobacco Use Types Packs/Day Years [...] Telephone Encounter - Nasra Figueroa CMA - 06/10/2020 1:13 PM EDT Faxed note to Ana Rosa, advised he is to sched his MRI's at [facility] per Worker Comp. * Telephone Encounter - Tj Dc MD - 06/10/2020 11:30 AM EDT Not that I am aware of. * Telephone Encounter - Nasra Figueroa CMA - 06/10/2020 10:48 AM EDT Ana Rosa called to advise that she got patient's referral approved through his work/comp. She wanted toask if there was anything legal involved? documented in this encounter Plan of Treatment Not on file documented as of this encounter Visit Diagnoses Not on filedocumented in this encounter
--- OUTSIDE RECORDS SUMMARY | 2024-09-12 22:52 | XMS_ITS | Encounter Summary ---
Author Organization [place] [address] Care Team Providers Care Scrap Preparation Supervisor Name Role Phone Unavailable Primary Care Provider Unavailabl e Encounter Details Date Type Department Care Team (Late st Contact Info) Description 01/09/1993 2:59 PM EST - 01/09/1993 11:59 PM EST Hospital Encounter HST EPIC CON UNK EDG Carlito Haider MD Social History Tobacco Use Types Packs/Day [...]
--- OUTSIDE RECORDS SUMMARY | 2024-09-12 22:52 | XMS_ITS | Encounter Summary ---
Author Organization [place] [address] Care Team Providers Care Ice Cream Server Name Role Phone Unavailable Primary Care Provider Unavailabl e Encounter Details Date Type Department Care Team (Late st Contact Info) Description 05/20/2000 9:14 AM EDT - 05/20/2000 12:00 PM EDT Hospital Encounter HST EMERGENCY FTT Generic, Historical Provider Social History Tobacco Use [...]
--- OUTSIDE RECORDS SUMMARY | 2024-09-12 22:52 | XMS_ITS | Encounter Summary ---
Author Organization [facility] [place] [address] Care Team Providers Care Sensitizer Name Role Phone Unavailable Primary Care Provider Unavailabl e Encounter Details Date Type Department Care Team (Latest Contact Info) Description 02/09/2020 Travel Social History Tobacco Use Types Packs/Day [...]
--- OUTSIDE RECORDS SUMMARY | 2024-09-12 22:52 | XMS_ITS | Encounter Summary ---
Author Organization [place] [address] Care Team Providers Care Restaurant Maintenance Technician Name Role Phone Unavailable Primary Care Provider [...] Bell Fraire, OTR/L CHT [address] [place] [address] Phone: tel: fax: Referral ID Status Reason Start Date Expiration Date Visits Re quested Visits Authorized [id number] Closed 02/24/2020 04/12/2020 1 12 Encounter Details Date Type Department Care Team (Latest Contact Info) Description 03/12/2020 7:58 AM EDT - 03/12/2020 11:59 PM EDT Hospital Encounter [facility] [place] [address] [place] [address] [address] [place] [address] Bell Fraire, OTR/L CHT [address] [place] [address] Discharge Disposition: Home or Self Care Social [...] Coronavirus / COVID-19? No / Unsure 03/12/2020 8:58 AM EDT documented as of this encounter Discharge Disposition Disposition Code Departure Means Destination Home or Self Care documented in this encounter Progress Notes * Kishoranthonybetsey Bell E, OTR/Suze CHT - 03/12/2020 8:00 AM EDT Today's Date: 03/12/2020 `?? Initial Evaluation Date:?02/24/2020 ?? Patient Name:?Angel Hernandez? ( Goes by ??Gordon.??) :??1970 ?? HISTORY OF CURRENT PROBLEM/GENERAL INFORMATION Referring Physician:?Joaquin Kapadia MD Next MD Appointment:?03/18/20 Diagnosis:??left thumb contusion Surgery:- Date of Onset/Injury:02/05/20 Date of Surgery:- PRECAUTIONS:??none ? VISIT:?4?? Is patient receiving home healthcare services?no (If yes, contact home health agency immediately) ?? FOTO Initial Assessment Completed. ??Next follow up due date: NA. ?? Progress Report/Re-Assessment due:??4 weeks ?? Prior Level of Function With Affected UE:?No limitations Prior Level of ADL Function:??Independent ? SUBJECTIVE:MD is referring to neurologist for his head. 1. no body is telling me anything [...] - ?? Pain Screening Score, 1-10: 5/10 ave Increase with ROM Location: Left dorsal thumb [...] ??03/01/20 ??03/04/20 03/12/20 5.5 weeks post injury Hot Pack x 15 min to increase extensibility and to decrease pain hand/wrist/forearm ?? x ??x ??x x Manual therapy/Soft Tissue Mobilization: With cream. With cream ??not done. Not done Edema Min ??Mild in thumb and radial wrist Large edema glove ??same same Therapeutic Exercise:ROM: Reviewed AROM ex 10 reps opp to P2 of SF. Thumb opposition, Thumb IP/MP blocking Rad/palmar abduction Thumb flex/ext ??10 reps each Thumb opp PIP of SF. 10 reps ??Ultrasound ?? US ??100% ??1.0 w/cm2 ??3.3 mhz dorsal thumb and web space. ??X ??x- last time. No change with US. Discontinue. Therapeutic Activities: Easy surface lay out technician pegs with thumb. ?? Fernwood squirreling. Mod difficulty. Small cone stacking Scarf scrunching for thumb flex ext Peg package pick up with thumb opp. To base of SF. Difficulty tying . BTE no resistance 5 tools . Splinting: Brace between exercise and light functional use. ??x ??Reports wearing brace 75% of time. Discussed weaning from brace over weekend. Wearing brace same Reports 75% of time. Not wearing in tx today only compression glove. Wean from brace. therapeutic exercise -Strength: defer x ??surface lay out technician R/L II 103/35 III 98/40 Tip 15/4 3 jaw 20/6 Tuttle ? ICE after tx for 10 min Patient Instructions: Increase use. ??cont previous HEP Add scarf scrunch for thumb flex/ext and grasp release cylindrical bottle :Large edema glove only as helpful. D/C use if painful or makes hand numb. ??Sent note with patient for md appt Wean from brace over weekend. Less splint More functional use. Equipment: ?? Large edema glove ? Assessment/ [...] perform BTE tools but needed ICE after. X Denotes completed that day. ? Progress [...] will be measured at??1-2??weeks. MET Increase left surface lay out technician strength to 80# 4 weeks Increase 3 jaw pinch to 10 lb. 4 weeks ? Decrease to 0-1/10 with exercise in 6 weeks ? Remove jar lids independently in??4-6??weeks ? Independent with fasteners (buttons, zipper, snaps) in 7 weeks ? Independent with ADLs of self care in??4??weeks. ? Return to light duty at work in??4??weeks ? 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 Return to full resistive work duties in??6 weeks ?? Percentage of Goals Met: 40% ?? PLAN: Follow Up: 2-3 x week for 4 weeks. Pt/family does understand treatment program. ?? Focus on the following: ? Fine Motor ? Function ? ROM ? Strength ? Pain Control ?? Charges: HP, 1 MT 15, TE 15 Total Timed Code Treatment Minutes: 30 Total treatment time in minutes: 50 ? Time in: 8 am Time out 850 am ?? Therapist:FUAD Rodriguez CHT documented in this encounter Plan of Treatment Not on file documented as of this encounter Visit Diagnoses Not on filedocumented in this encounter
--- OUTSIDE RECORDS SUMMARY | 2024-09-12 22:52 | XMS_ITS | Encounter Summary ---
Author Organization [place] [address] Care Team Providers Care Livestock Showman Name Role Phone Unavailable Primary Care Provider Unavailabl e Encounter Details Date Type Department Care Team (Late st Contact Info) Description 11/16/2001 Hospital Encounter HST MEDICINE FTT Generic, Historical Provider Social History Tobacco [...]
--- OUTSIDE RECORDS SUMMARY | 2024-09-12 22:52 | XMS_ITS | Encounter Summary ---
Author Organization [facility] [place] [address] Care Team Providers Care Rotor Coil Taper Name Role Phone Unavailable Primary Care Provider Unavailabl e Encounter Details Date Type Department Care Team (Latest Contact Info) Description 03/18/2020 Travel Social History Tobacco Use Types Packs/Day [...] have Coronavirus / COVID-19? No / Unsure 03/18/2020 7:29 AM EDT documented as of this encounter Plan of Treatment Not on file documented as of this encounter Visit Diagnoses Not on filedocumented in this encounter
--- OUTSIDE RECORDS SUMMARY | 2024-09-12 22:52 | XMS_ITS | Encounter Summary ---
Author Organization [place] [address] Care Team Providers Care Instructor Extension Work Name Role Phone Unavailable Primary Care Provider Unavailabl e Reason for Visit * Reason Onset Date Comments Other 06/07/2020 Encounter Details Date Type Department Care Team (Late st Contact Info) Description 06/07/2020 Telephone SEP Neurology [facility] [address] [place] [address] DcTj MD [address] [place] [address] Other Social History Tobacco Use Types Packs/Day Years [...] Telephone Encounter - Nasra Figueroa CMA - 06/09/2020 1:45 PM EDT Called Gordon to advise of scheduling at [facility]. [phone], Gordon Benitez requested we call herwith the [facility] information. Their number is [phone] ([phone]) to schedule. Advised her of all. She said that one call told them to wait until they have the results of labs and that they need to be faxed to [facility] ([phone]). before they can schedule. * Telephone Encounter - Nasra Figueroa CMA - 06/09/2020 12:23 PM EDT ONE CALL , Pérez , called and said to fax orders to [facility] ([phone]). and fax copy to them at [phone]. * Telephone Encounter - Nasra Figueroa CMA - 06/09/2020 11:07 AM EDT Eli called back and said Gordon had his labs drawn this AM and they shawn an extra tube for the BUN lab, he may need if MRI is done outside the [facility]. Gordon spoke to the Scheduling desk and they won'tput the MRI up for scheduling until a BUN is resulted. Her number is [phone]. Put in an order for the BUN. Called Marcio the Special Events Assistant [phone], and advised of all. He will call and see where the orders are to be sent/ * Telephone Encounter - Nasra Figueroa CMA - 06/07/2020 2:50 PM EDT Spoke to patient and when they called to sched the MRI's, were told that Dr. Dc needs to add a BUN lab to make sure he can do the contrast. Called MRI dept and she said that if he's getting done at [facility], he doesn't need BUN drawn, used to be they would need but the contrast they use now, they don't. She said that if he gets done at another facility, he very well may need the BUN done prior. Still waiting for the fax from the test scheduling person , they were to request the test ordersand where to send them. Will need to ask where, as he may need the BUN. * Telephone Encounter - Nasra Figueroa CMA - 06/07/2020 2:29 PM EDT Angel called and LMTC him back.no message. Called and got his VM. LMTC documented in this encounter Plan of Treatment Not on file documented as of this encounter Results * BLOOD UREA NITROGEN (06/09/2020 9:20 AM EDT) BUN 18 6 - 20 mg/dL 06/09/2020 1:57 PM EDT PREFERRED LAB [facility] Blood VENOUS BLOOD / Unknown Venipuncture / Unknown 06/09/2020 9:20 AM EDT 06/09/2020 9:20 AM EDT us Tj Dc MD CHEMISTRY ORDERABLES Final Result [facility] [address] [place] [address] , [place] [address] documented in this encounter Visit Diagnoses Diagnosis Postconcussion syndrome- Primary documented in this encounter
--- OUTSIDE RECORDS SUMMARY | 2024-09-12 22:52 | XMS_ITS | Encounter Summary ---
Author Organization [facility] [place] [address] Care Team Providers Care Epoxy Specialist Name Role Phone Unavailable Primary Care Provider Unavailabl e Encounter Details Date Type Department Care Team (Latest Contact Info) Description 06/15/2020 Travel Social History Tobacco Use Types Packs/Day [...]
--- OUTSIDE RECORDS SUMMARY | 2024-09-12 22:52 | XMS_ITS | Encounter Summary ---
Author Organization [place] [address] Care Team Providers Care Hemmer Chainstitch Name Role Phone Unavailable Primary Care Provider Unavailabl e Encounter Details Date Type Department Care Team (Late st Contact Info) Description 11/30/1995 8:34 PM EST - 11/30/1995 11:59 PM EST Hospital Encounter HST MINOR ER EDG Ishaan Bowman MD Social History Tobacco Use Types Packs/Day [...]
--- OUTSIDE RECORDS SUMMARY | 2024-09-12 22:52 | XMS_ITS | Encounter Summary ---
Author Organization [place] [address] Care Team Providers Care Founder And President Name Role Phone Unavailable Primary Care Provider Unavailabl e Encounter Details Date Type Department Care Team (Latest Contact Info) Description 06/25/2020 12:15 PM EDT - 06/25/2020 11:59 PM EDT Hospital Encounter [facility] [address] [place] [address] Alfonso Haddad MD [address] [place] [phone] Retained foreign body Discharge Disposition: Home or Self Care Social [...] Name Priority Date/Time Associated Diagnosis Comments XR EYE BILATERAL FOREIGN BODY STAT 06/25/2020 12:21 PM EDT Retained foreign body documented in this encounter Results * XR EYE BILATERAL FOREIGN BODY (06/25/2020 12:21 PM EDT) Anatomical Region Laterality Modality Radiographic Saba ging 06/25/2020 12:2 1 PM EDT Impressions 06/25/2020 12:36 PM EDT No radiopaque orbital foreign body. - Narrative 06/25/2020 12:36 PM EDT BILATERAL ORBITS FOR FOREIGN BODY, ??06/25/2020 12:21 PM CLINICAL HISTORY: ??Z18.9-Retained foreign body fragments, unspecified [id number]. ??Prior orbital foreign body exposure. COMPARISON: ??None. PROCEDURE COMMENTS: Minimum of 2 views of the orbits to evaluate for foreign body. FINDINGS: No orbital foreign body. Sinuses and mastoids are clear. Orbital structures unremarkable. Procedure Note Tahir Pope MD - 06/25/2020 BILATERAL ORBITS FOR FOREIGN BODY, 06/25/2020 12:21 PM CLINICAL HISTORY: Z18.9-Retained foreign body fragments, unspecified [id number]. Prior orbital foreign body exposure. COMPARISON: None. PROCEDURE COMMENTS: Minimum of 2 views of the orbits to evaluate forforeign body. FINDINGS: No orbital foreign body. Sinuses and mastoids are clear.Orbital structures unremarkable. IMPRESSION: No radiopaque orbital foreign body. - Alfonso Haddad MD IMG DIAGNOSTIC IMAGING ORDER NGHIA Final Result documented in this encounter Visit Diagnoses Diagnosis Retained foreign body Retained foreign body, unspecified material documented in this encounter
--- OUTSIDE RECORDS SUMMARY | 2024-09-12 22:52 | XMS_ITS | Encounter Summary ---
Author Organization [place] [address] Care Team Providers Care Java Software Engineer Name Role Phone Unavailable Primary Care [...] Bell Fraire, OTR/L CHT [address] [place] [address] Phone: tel: fax: Referral ID Status Reason Start Date Expiration Date Visits Re quested Visits Authorized [id number] Closed 02/24/2020 04/12/2020 1 12 Encounter Details Date Type Department Care Team (Latest Contact Info) Description 02/27/2020 8:00 AM EDT - 02/27/2020 11:59 PM EDT Hospital Encounter [facility] Hand Therapy [place] [address] [place] [address] [address] [place] [address] Bell Fraire, OTR/L CHT [address] [place] [address] Discharge Disposition: Home or Self Care Social [...] have Coronavirus / COVID-19? No / Unsure 02/27/2020 7:59 AM EDT documented as of this encounter [...] Care - Bell Fraire OTR/Suze CHT - 02/27/2020 8:00 AM EDT Today's Date: 02/27/2020 Initial Evaluation Date: 02/24/2020 ?? Patient Name: Angel Hernandez Goes by Gordon. : 1970 ?? HISTORY OF CURRENT PROBLEM/GENERAL INFORMATION Referring Physician: Joaquin Kapadia MD Next MD Appointment: 03/04/20 Diagnosis: left thumb contusion Surgery:- Date of Onset/Injury:02/05/20 Date of Surgery:- PRECAUTIONS: none ? VISIT: 2 Is patient receiving home healthcare services? no (If yes, contact home health agency immediately) ?? FOTO Initial Assessment Completed. Next follow up due date: NA. ?? Progress Report/Re-Assessment due: 4 weeks ?? Prior Level of Function With Affected UE: No limitations Prior Level of of ADL Function: Independent SUBJECTIVE: It hurts Mr. Hernandez's medications have not changed since last visit. Work Function: off work ADL Function: - Pain Screening Score, 1-10: 2-8/10 Increase with ROM Location: Left thumb and wrist Description/Type: sharp, achy, throbbing OBJECTIVE: TREATMENT/EVALUATION RECEIVED THIS DATE: Date: 02/27/20 Hot Pack x 15 min to increase extensibility and to decrease pain hand/wrist/forearm x Manual therapy/Soft Tissue Mobilization: With cream. Edema Min Therapeutic Exercise:ROM: Reviewed AROM ex 10 reps opp to P2 of SF. US 100% 1.0w/cm2 3.3 mhz dorsal thumb and web space. Theraputic Activities: Easy comedian pegs with thumb. [place] squirreling. Mod difficulty. Splinting: Brace between exercise and light functional use. theraputic exercise -Strength: defer Patient Instructions: Increase use. Equipment: Assessment/ impression Encouraged light use at home. Need to cont to increase use to get it more coordinated. X Denotes completed that day. Progress towards goals: ?? ROM ?? Strength ?? ADLs ?? Edema Decreasing ?? Decrease in Pain Progress towards functional status: - GOALS: SHORT TERM: ? Tolerate splint, reporting comfortable fit for 2 weeks. ? Achieve full digital extension, full flexion to DPC in 4 weeks. ? Increase active Wrist flexion of left to 60 degrees in 2 weeks. ? Strength will be measured at 1-2 weeks. ? Decrease to 0-1/10 with exercise in 6 weeks ? Remove jar lids independently in 4-6 weeks ? Independent with fasteners (buttons, zipper, snaps) in 7 weeks ? Independent with ADLs of self care in 4 weeks ? Return to light duty at work in 4 weeks ? ?? 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 Return to full resistive work duties in 6weeks ?? Percentage of Goals Met: -% PLAN: Follow Up: 2-3x week for 4-6 weeks. Pt/family does understand treatment program. Focus on the following: ?? Fine Motor ?? Function ?? ROM ?? Strength ?? Pain Control Charges: HP, US, MT 15, tA 15 Total Timed Code Treatment Minutes: 40 Total treatment time in minutes: 55 Time in: 8 am Time out: 855 Therapist: FUAD Rodriguez CHT documented in this encounter Plan of Treatment Not on file documented as of this encounter Visit Diagnoses Not on filedocumented in this encounter
--- OUTSIDE RECORDS SUMMARY | 2024-09-12 22:52 | XMS_ITS | Encounter Summary ---
Author Organization [place] [address] Care Team Providers Care Small Products Assembler Name Role Phone Unavailable Primary Care Provider [...] Bell Fraire, OTR/L CHT [address] [place] [address] Phone: tel: fax: Referral ID Status Reason Start Date Expiration Date Visits Re quested Visits Authorized [id number] Closed 02/24/2020 04/12/2020 1 12 Encounter Details Date Type Department Care Team (Latest Contact Info) Description 03/18/2020 7:29 AM EDT - 03/18/2020 11:59 PM EDT Hospital Encounter [facility] Hand Therapy [place] [address] [place] [address] [address] [place] [address] Bell Fraire, OTR/L CHT [address] [place] [address] Discharge Disposition: Home or Self Care Social [...] this encounter Progress Notes * Bell Fraire, OTR/Suze CHT - 03/18/2020 7:30 AM EDT Today's Date: 03/18/2020 `?? Initial Evaluation Date:?02/24/2020 ?? Patient Name:?Angel Hernandez? ( Goes by ??Gordon.??) :??1970 ?? HISTORY OF CURRENT PROBLEM/GENERAL INFORMATION Referring Physician:?Joaquin Kapadia MD Next MD Appointment:?03/18/20 Diagnosis:??left thumb contusion Surgery:- Date of Onset/Injury:02/05/20 Date of Surgery:- PRECAUTIONS:??none ? VISIT:?6 Is patient receiving home healthcare services?no (If yes, contact home health agency immediately) ?? FOTO Initial Assessment Completed. ??Next follow up due date: NA. ?? Progress Report/Re-Assessment due:??done 03/18/20 ?? Prior Level of Function With Affected UE:?No limitations Prior Level of ADL Function:??Independent ? SUBJECTIVE: reports he worked a wrench and it hurt his wrist up to elbow. it hurts when I use it But then states I don't use it Mr. Albrechts medications have not changed since last visit. Work Function: off work ADL Function: - ?? Pain Screening Score, 1-10: 1/10 at rest Location: Left dorsal thumb and web space, medial thumb MP joint, radial wrist Description/Type: sharp, achy, throbbing ?? OBJECTIVE: TREATMENT/EVALUATION RECEIVED THIS DATE: Thumb AROM: DATE: Right 03/01/20 Left 03/12/20 03/18/20 MCP: 55 35 55 55 IP: 70 35 70 70 Radial Abduction: 45 40 50 Palmar Abduction: 45 40 50 Thumb Opposition to SF MCP MP crease PIP crease Base of SF Base of SF Wrist flex 45 50 Wrist ext 45 45 03/01/20 Provocative testing: Flaquita: Right negative Left positive Thumb UCL test: Right stable Left :Stable yet painful ?? Date: 02/27/20 ??03/01/20 ??03/04/20 03/12/20 5.5 weeks post injury 03/16/20 03/18/20 Progress note Hot Pack x 15 min to increase extensibility and to decrease pain hand/wrist/forearm ?? x ??x ??x x x x Manual therapy/Soft Tissue Mobilization: With cream. With cream ??not done. Not done - - Edema Min ??Mild in thumb and radial wrist Large edema glove ??same same - - Therapeutic Exercise:ROM: Reviewed AROM ex 10 reps opp to P2 of SF. Thumb opposition, Thumb IP/MP blocking Rad/palmar abduction Thumb flex/ext ??10 reps each Thumb opp PIP of SF. 10 reps Full PROM. Resists some. Full PROM ??Ultrasound ?? US ??100% ??1.0 w/cm2 ??3.3 mhz dorsal thumb and web space. ??X ??x- last time. No change with US. Discontinue. - Therapeutic Activities: Easy bridge contractor pegs with thumb. ?? [place] squirreling. Mod difficulty. Small cone stacking Scarf scrunching for thumb flex ext Peg last picker with thumb opp. To base of SF. Difficulty tying . BTE no resistance 5 tools . irene last picker green clothes pin. 1/2 with blue. BTE light resistance Same tools. Splinting: Brace between exercise and light functional use. ??x ??Reports wearing brace 75% of time. Discussed weaning from brace over weekend. Wearing brace same Reports 75% of time. Not wearing in tx today only compression glove. Wean from brace. [place]. Compression - cuffed sleeve for support. therapeutic exercise -Strength: defer x ??bridge contractor R/L II 103/35 III 98/40 Tip 15/4 3 jaw 20/6 Tuttle 25/15 Reassess Thurs prior to MD appt. Tung Nut Grower R/L II 98/84 III 105/90 Tip 15/9 3 jaw 21/10 Tuttle 24/20 ? ICE after tx for 10 min [...] perform BTE tools but needed ICE after. Tolerated fair. Less painafter BTE except he felt like thumb got caught MD note next visit. Sent progress note with patient for MD appt today. Reports pain and instability. With manual mobs no instability noted. X Denotes completed that day. ? Progress [...] will be measured at??1-2??weeks. MET Increase left bridge contractor strength to 80# 4 weeks MET Increase 3 jaw pinch to 10 lb. 4 weeks MET ? Decrease to 0-1/10 with exercise in 6 weeks ? Remove jar lids independently in??4-6??weeks ? Independent with fasteners (buttons, zipper, snaps) in 7 weeks. MET ? Independent with ADLs of self care in??4??weeks. MET ? Return to light duty at work in??4??weeks. MET ? 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 Return to full resistive work duties in??6 weeks ?? Percentage of Goals Met: 80% ?? PLAN: Follow Up: continue per MD orders. May be a good candidate for work hardening. Pt/family does understand treatment program. ?? Focus on the following: ? Fine Motor ? Function ? ROM ? Strength ? Pain Control ?? Charges: HP, 1 MT 15, TE 15, Total Timed Code Treatment Minutes: 30 Total treatment time in minutes: 45 ? Time in: 730 am Time out 815 am ?? Therapist:KRISHNA Rodriguez/Suze HOLDER documented in this encounter Plan of Treatment Not on file documented as of this encounter Visit Diagnoses Not on filedocumented in this encounter
--- OUTSIDE RECORDS SUMMARY | 2024-09-12 22:52 | XMS_ITS | Encounter Summary ---
Author Organization [place] [address] Care Team Providers Care Cylinder Press Operator Apprentice Name Role Phone Unavailable Primary Care Provider Unavailabl e Encounter Details Date Type Department Care Team (Late st Contact Info) Description 11/24/2006 9:10 PM EST - 11/24/2006 10:00 PM EST Hospital Encounter [facility] Glynn Song, DO [address] [place] [address] Social History Tobacco Use Types Packs/Day Years Used Date Smoking Tobacco: Never Assessed Sex and Gender Information Value Date Recorded Sex Assigned at Not on file Legal Sex Male 7:46 PM EDT Gender Identity Not on file Sexual Orientation Not on file documented as of this encounter Plan of Treatment Scheduled Orders Name Type Priority Associated Diagnoses Orde r Schedule XR CHEST PA & LATERAL Imaging Routine Onc e for 1 Occurrences starting 12/22/2009 until 12/22/2009, 1 completed documented as of this encounter Procedures Procedure Name Priority Date/Time Associated Diagnosis Comments XX CHEST PA & LATERAL Routine 11/24/2006 9:22 PM EST documented in this encounter Results * XR CHEST PA & LATERAL (11/24/2006 9:22 PM EST) Anatomical Region Laterality Modality Other 11/24/2006 9:22 PM EST Narrative 11/25/2006 10:35 AM EST 37 PA and lateral chest- 11/24/2006. Comparison- Report from 11/19/1994 reviewed. Original films purged. Indication- 36-year-old male who fell 2 days ago with pain between shoulder blades. Findings- Heart size and mediastinum are normal. The lungs are not well expanded. No pneumothorax or pleural effusion. Rib contours are intact. No areas of pleural thickening. Impression- 1. No acute cardiopulmonary disease or evidence of acute chest trauma. ? Assembler Unit- ADA MONTOYA ? Reading Radiologist- ADA KOHLER ??. ? Released Date Time- 11/25/06 1509 Procedure Note Ada Kohler - 12/22/2009 39 PA and lateral chest- 11/24/2006. Comparison- Report from 11/19/1994 reviewed. Original films purged. Indication- 36-year-old male who fell 2 days ago with pain between shoulder blades. Findings- Heart size and mediastinum are normal. The lungs are not well expanded. No pneumothorax or pleural effusion. Rib contours are intact. No areas of pleural thickening. Impression- 1. No acute cardiopulmonary disease or evidence of acute chest trauma. Assembler Unit- ADA MONTOYA Reading Radiologist- ADA KOHLER MD. Released Date Time- 11/25/06 1509 Glynn Song DO [facility] al Result documented in this encounter Visit Diagnoses Not on filedocumented in this encounter
--- OUTSIDE RECORDS SUMMARY | 2024-09-12 22:52 | XMS_ITS | Encounter Summary ---
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
--- OUTSIDE RECORDS SUMMARY | 2024-09-12 22:52 | XMS_ITS | Encounter Summary ---
Author Organization [place] [address] Care Team Providers Care Residential Real Estate Sales Manager Name Role Phone Unavailable Primary Care Provider Unavailabl e Reason for Referral * MRI/CAT Scan (Routine) - Closed Specialty Diagnoses / Procedures Referred By Contac t Referred To Contact Radiology Diagnoses Postconcussion syndrome Paralysis (HCC) Procedures MRI CERVICAL SPINE W WO CONTRAST Tj Dc MD [address] [place] [address] Phone: tel: fax: Referral ID Status Reason Start Date Expiration Date Visits Re quested Visits Authorized [id number] Closed 06/04/2020 06/04/2021 1 1 Reason for Visit * MRI/CAT Scan (Routine) - Closed Specialty Diagnoses / Procedures Referred By Contac t Referred To Contact Radiology Diagnoses Postconcussion syndrome Paralysis (HCC) Procedures MRI CERVICAL SPINE W WO CONTRAST Tj Dc MD [address] [place] [address] Phone: tel: fax: Referral ID Status Reason Start Date Expiration Date Visits Re quested Visits Authorized [id number] Closed 06/04/2020 06/04/2021 1 1 Encounter Details Date Type Department Care Team (Late st Contact Info) Description 06/25/2020 12:08 PM EDT - 06/25/2020 12:14 PM EDT Hospital Encounter [facility] MRI [address] [place] [address] Tj Dc MD [address] [place] [address] Postconcussion syndrome; Paralysis (HCC) Discharge Disposition: Home or Self Care Social [...] Procedure Name Priority Date/Time Associated Diagnosis Comments MRI CERVICAL SPINE W WO CONTRAST Routine 06/25/2020 2:09 PM EDT Postconcussion syndrome Paralysis (HCC) documented in this encounter Results * MRI CERVICAL SPINE W WO CONTRAST (06/25/2020 2:09 PM EDT) Anatomical Region Laterality Modality Spine, C-spine Magnetic Resonan ce 06/25/2020 2:09 PM EDT Impressions 06/25/2020 4:54 PM EDT No enhancing and/or acute abnormality. No abnormal cord signal or morphology. Small right paracentral disc protrusion C5-6 without significant central canal, lateral recess, neural foraminal stenosis. - Narrative 06/25/2020 4:54 PM EDT MRI CERVICAL SPINE W WO CONTRAST 06/25/2020 2:09 PM ?? CLINICAL HISTORY: ??F07.81-Postconcussional tznhjlpv-OVL-27-CM G83.9-Paralytic syndrome, cpbghgiqjog-PKK-99-CM COMPARISON: ??None. PROCEDURE COMMENTS: Multiplanar multiecho MR imaging of the cervical spine. ??20 mL Multihance given. FINDINGS: ?? No malalignment or concerning marrow signal abnormality. ?? Cord signal unremarkable. ??No abnormal enhancement. Level by level analysis: C2-C3: ??Unremarkable. C3-C4: ??Shallow posterior disc bulging of doubtful architectural significance. ?? C4-C5: ??Unremarkable. ?? C5-C6: ??There is a small right paracentral disc protrusion indenting the anterior thecal sac. No central canal, lateral recess, neural foraminal stenosis. No abnormal cord signal. C6-C7: ??Unremarkable. ?? C7-T1: ??Unremarkable. Procedure Note David Carrillo MD - 06/25/2020 MRI CERVICAL SPINE W WO CONTRAST 06/25/2020 2:09 PM CLINICAL HISTORY: F07.81-Postconcussional chazizal-WNH-69-CM G83.9-Paralytic syndrome, pbrcehmjvmb-WQT-96-CM COMPARISON: None. PROCEDURE COMMENTS: Multiplanar multiecho MR imaging of the cervicalspine. 20 mL Multihance given. FINDINGS: No malalignment or concerning marrow signal abnormality. Cord signal unremarkable. No abnormal enhancement. Level by level analysis: C2-C3: Unremarkable. C3-C4: Shallow posterior disc bulging of doubtful architecturalsignificance. C4-C5: Unremarkable. C5-C6: There is a small right paracentral disc protrusion indenting the anterior thecal sac. No central canal, lateral recess, neural foraminal stenosis. No abnormal cord signal. C6-C7: Unremarkable. C7-T1: Unremarkable. IMPRESSION: No enhancing and/or acute abnormality. No abnormal cord signal or morphology. Small right paracentral disc protrusion C5-6 withoutsignificant central canal, lateral recess, neural foraminal stenosis. - Tj Dc MD IMG MRI ORDERABLES Final Re sult documented in this encounter Visit Diagnoses Diagnosis Postconcussion syndrome Paralysis (HCC) Paralysis, unspecified documented in this encounter
--- OUTSIDE RECORDS SUMMARY | 2024-09-12 22:52 | XMS_ITS | Encounter Summary ---
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 Name Role Phone Unavailable Primary Care Provider Unavailabl e Reason for Referral * MRI/CAT Scan (Routine) - Closed Specialty Diagnoses / Procedures Referred By Contac t Referred To Contact Radiology Diagnoses Postconcussion syndrome Paralysis (HCC) Procedures MRI BRAIN W WO CONTRAST Tj Dc MD [address] [place] [address] Phone: tel: fax: Referral ID Status Reason Start Date Expiration Date Visits Re quested Visits Authorized [id number] Closed 06/04/2020 06/04/2021 1 1 Reason for Visit * MRI/CAT Scan (Routine) - Closed Specialty Diagnoses / Procedures Referred By Contac t Referred To Contact Radiology Diagnoses Postconcussion syndrome Paralysis (HCC) Procedures MRI BRAIN W WO CONTRAST Tj Dc MD [address] [place] [address] Phone: tel: fax: Referral ID Status Reason Start Date Expiration Date Visits Re quested Visits Authorized [id number] Closed 06/04/2020 06/04/2021 1 1 Encounter Details Date Type Department Care Team (Late st Contact Info) Description 06/25/2020 12:07 PM EDT Hospital Encounter [facility] MRI [address] [place] [id number] Tj Dc MD [address] [place] [address] Postconcussion syndrome; Paralysis (HCC) Discharge [...] Name Priority Date/Time Associated Diagnosis Comments MRI BRAIN W WO CONTRAST Routine 06/25/2020 2:01 PM EDT Postconcussion syndrome Paralysis (HCC) documented in this encounter Results * MRI BRAIN W WO CONTRAST (06/25/2020 2:01 PM EDT) Anatomical Region Laterality Modality Head Magnetic Resonan ce 06/25/2020 2:01 PM EDT Impressions 06/25/2020 2:54 PM EDT 1. No acute intracranial abnormality. 2. No evidence of intracranial mass, mass effect, or abnormal enhancement. - Narrative 06/25/2020 2:54 PM EDT MRI BRAIN W WO CONTRAST ??06/25/2020 2:01 PM ?? CLINICAL HISTORY: ??F07.81-Postconcussional nvepacin-XBI-63-CM G83.9-Paralytic syndrome, roiwuzswpqv-MLL-23-CM COMPARISON: ??CT head without IV contrast 02/07/2020 PROCEDURE COMMENTS: Multiplanar multiecho MR imaging of the brain per protocol before and following IV contrast administration. 20 mL Multihance given. FINDINGS: ?? Acute Ischemic Change: No evidence of restricted diffusion to suggest an acute infarct. ?? Hemorrhage: No evidence of prior parenchymal hemorrhage on the gradient echo images. Mass Effect / Mass Lesion: No mass effect. ??No evidence of an intracranial mass or extra-axial fluid collection. Parenchyma: There is no abnormal enhancement on postcontrast images. Stable ovoid CSF signal intensity focus within the left basal ganglia which may relate to a prominent perivascular CSF space. ??The brain parenchyma is otherwise within normal limits of signal intensity and morphology. ?? Ventricles: Normal caliber and morphology. Skull Base: Hypothalamic and pituitary region are grossly normal. Craniocervical junction is normal. No marrow replacement process. Vasculature: Major intracranial arterial structures and dural venous sinuses show typical flow void, suggesting patency by spin echo criteria. ?? Sinuses: The visualized portions of the paranasal sinuses and mastoid air cells are grossly clear. Leftward nasal septal deviation is noted. Orbits: Grossly normal. Soft Tissues: The visualized extracranial soft tissues are grossly normal. Procedure Note Pritesh Roque MD - 06/25/2020 MRI BRAIN W WO CONTRAST 06/25/2020 2:01 PM CLINICAL HISTORY: F07.81-Postconcussional yonjchjt-TXX-33-CM G83.9-Paralytic syndrome, unqeclatyxh-KES-28-CM COMPARISON: CT head without IV contrast 02/07/2020 PROCEDURE COMMENTS: Multiplanar multiecho MR imaging of the brain perprotocol before and following IV contrast administration. 20 mL Multihance given. FINDINGS: Acute Ischemic Change: No evidence of restricted diffusion to suggest anacute infarct. Hemorrhage: No evidence of prior parenchymal hemorrhage on the gradientecho images. Mass Effect / Mass Lesion: No mass effect. No evidence of an intracranialmass or extra-axial fluid collection. Parenchyma: There is no abnormal enhancement on postcontrast images.Stable ovoid CSF signal intensity focus within the left basal ganglia which mayrelate to a prominent perivascular CSF space. The brain parenchyma is otherwisewithin normal limits of signal intensity and morphology. Ventricles: Normal caliber and morphology. Skull Base: Hypothalamic and pituitary region are grossly normal.Craniocervical junction is normal. No marrow replacement process. Vasculature: Major intracranial arterial structures and dural venoussinuses show typical flow void, suggesting patency by spin echo criteria. Sinuses: The visualized portions of the paranasal sinuses and mastoid aircells are grossly clear. Leftward nasal septal deviation is noted. Orbits: Grossly normal. Soft Tissues: The visualized extracranial soft tissues are grosslynormal. IMPRESSION: 1. No acute intracranial abnormality. 2. No evidence of intracranial mass, mass effect, or abnormalenhancement. - Tj Dc MD IMG MRI ORDERABLES Final Re sult documented in this encounter Visit Diagnoses Diagnosis Postconcussion syndrome Paralysis (HCC) Paralysis, unspecified documented in this encounter Administered Medications Inactive Administered Medications - up to 1 most recent administrations Medication Order MAR Action Action Date Dose Rate Site Gadobenate Dimeglumine (MULTIHANCE) Soln 20 mL 20 mL, Intravenous, ONCE PRN, 1 dose, Starting on Sun06/25/20 at 1221, Until Sun06/25/20 at 1402, Other, Radiology Procedure, VESICANT , MRI (Contrasts) Given 06/25/2020 2:02 PM EDT 20 mL Right Arm documented in this encounter Orders Medications Ordered That Vito ht Not Have Been Administered Count Last Ordered Date First Ordered Date Gadobenate Dimeglumine (MULT IHANCE) Soln 20 mL 1 06/25/2020 documented in this encounter
--- OUTSIDE RECORDS SUMMARY | 2024-09-12 22:52 | XMS_ITS | Encounter Summary ---
Author Organization [place] [address] Care Team Providers Care Information Specialist Name Role Phone Unavailable Primary Care Provider Unavailabl e Reason for Visit * Reason Onset Date Comments Other 06/07/2020 mri orders Encounter Details Date Type Department Care Team (Late st Contact Info) Description 06/07/2020 Telephone SEP Neurology [facility] [address] [place] [address] Dc, Tj Nuñez MD [address] [place] [address] Other (mri orders) Social History Tobacco Use Types Packs/Day Years [...] Miscellaneous Notes * Telephone Encounter - Nasra Figueroa, ADVERTISING LAYOUT WORKER - 06/15/2020 9:25 AM EDT Marcio Shearer called and said OK for patient to call [facility] and schedule tests. called Eli, his friend thatis helping him with all of this - [phone]. explained all and gave ph # to call. * Telephone Encounter - Nasra Figueroa CMA - 06/15/2020 9:15 AM EDT Called [facility] to advise. X 2, got fast busy. Called Marcio Shearer, Nurse Public Relations Coordinator., and left a detailed message to call me back. Advised that [facility] does have a copy of the orders. But they will need to ok for him to get done at [facility]. * Telephone Encounter - Mara Long RMA - 06/14/2020 4:27 PM EDT Siomara from [facility] calls stating that they do NOT do Brain MRI's. Per imaging nurse she would rather him get all of his testing at the same facility which is the hospital. AGAIN [facility] WILL NOT BE DOING OR SCHEDULING THE MRI's for this patient. * Telephone Encounter - Nasra Figueroa CMA - 06/09/2020 11:23 AM EDT Called Marcio and asked about getting MRIs done at ? If yes, doesn't need BUN due to the contrast they use this past year doesn't require it. If not , then yes. A lot of imaging places outside of still use the old contrast. He will check with [facility] to make sure where he is able to schedule MRIs. Per [facility] , Pérez called back and he said Marcio told him that [facility] is affiliated with . Explained that while there is an affiliation, MRIs done there are not available in our [employer] system to view. Patient will still need to bring a disc to our office for Dr. Dc. He said to fax the MRI orders to them at [phone] and also fax to [facility] at [phone]. * Telephone Encounter - Nasra Figueroa CMA - 06/07/2020 8:34 AM EDT Marcio Shearer, Public Relations Coordinator for pt., called to update. Patient Works for [employer], and they run all test orders through [facility] which coordinates tests for the patient. They set up everything. They will send a request over to fax copy of orders. Said they should be at [facility]. Case# [id number]. documented in this encounter Plan of Treatment Not on file documented as of this encounter Visit Diagnoses Not on filedocumented in this encounter
--- OUTSIDE RECORDS SUMMARY | 2024-09-12 22:52 | XMS_ITS | Encounter Summary ---
Author Organization [facility] [place] [address] Care Team Providers Care Rad Technologist Name Role Phone Unavailable Primary Care Provider Unavailabl e Encounter Details Date Type Department Care Team (Latest Contact Info) Description 03/01/2020 Travel Social History Tobacco Use Types Packs/Day [...]
--- OUTSIDE RECORDS SUMMARY | 2024-09-12 22:52 | XMS_ITS | Encounter Summary ---
Author Organization [place] [address] Care Team Providers Care Regional Dedicated Truck Driver Name Role Phone Unavailable Primary Care Provider Unavailabl e Encounter Details Date Type Department Care Team (Late st Contact Info) Description 03/19/2003 11:31 PM EDT - 03/20/2003 1:30 AM EDT Hospital Encounter [facility] Generic, [...]
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
--- OUTSIDE RECORDS SUMMARY | 2024-09-12 22:52 | XMS_ITS | Encounter Summary ---
Author Organization [place] [address] Care Team Providers Care Senior Data Warehouse Developer Name Role Phone Unavailable Primary Care Provider Unavailabl e Encounter Details Date Type Department Care Team (Late st Contact Info) Description 04/09/1993 11:39 PM EDT - 04/09/1993 11:59 PM EDT Hospital Encounter [facility] CON UNK EDG Tj Shah MD Social History Tobacco Use Types Packs/Day [...]
--- OUTSIDE RECORDS SUMMARY | 2024-09-12 22:52 | XMS_ITS | Encounter Summary ---
Author Organization [facility] [place] [place] [address] Care Team Providers Care Journal Clerk Name Role Phone Unavailable Primary Care Provider Unavailabl e Encounter Details Date Type Department Care Team (Latest Contact Info) Description 02/23/2020 Travel Social History Tobacco Use Types Packs/Day [...] have Coronavirus / COVID-19? No / Unsure 02/23/2020 9:56 AM EDT documented as of this encounter Plan of Treatment Not on file documented as of this encounter Visit Diagnoses Not on filedocumented in this encounter
--- OUTSIDE RECORDS SUMMARY | 2024-09-12 22:52 | XMS_ITS | Encounter Summary ---
Author Organization [place] [address] Care Team Providers Care Tile Ditcher Name Role Phone Unavailable Primary Care Provider Unavailabl e Encounter Details Date Type Department Care Team (Late st Contact Info) Description 01/27/1995 9:34 PM EDT - 01/27/1995 11:59 PM EDT Hospital Encounter [facility] EP[facility] CON UNK COV Hudson Torres MD [address] [place] [address] Social History Tobacco Use Types Packs/Day [...]
--- OUTSIDE RECORDS SUMMARY | 2024-09-12 22:52 | XMS_ITS | Encounter Summary ---
Author Organization [place] Address [address] [facility] [address] Care Team Providers Care Pony Worker Name Role Phone Unavailable Primary Care Provider Unavailabl e Encounter Details Date Type Department Care Team (Latest Contact Info) Description 06/09/2020 9:00 AM EDT - 06/09/2020 11:59 PM EDT Hospital Encounter [facility] [address] [place] [id number] Postconcussion syndrome; Memory loss Discharge Disposition: Home or Self Care Social [...] Procedure Name Priority Date/Time Associated Diagnosis Comments TSH REFLEX Routine 06/09/2020 9:20 AM EDT Postconcussion syndrome Memory loss CBC Routine 06/09/2020 9:20 AM EDT Postconcussion syndrome Memory loss METHYLMALONIC ACID (MMA) QUANTITATIVE -REF LAB Routine 06/09/2020 9:20 AM EDT Postconcussion syndrome Memory loss BLOOD UREA NITROGEN Routine 06/09/2020 9 :20 AM EDT Postconcussion syndrome VITAMIN B12 LEVEL Routine 06/09/2020 9:2 0 AM EDT Postconcussion syndrome Memory loss COMPREHENSIVE METABOLIC PANEL Routine 06/09/2020 9:20 AM EDT Postconcussion syndrome Memory loss documented in this encounter Results * BLOOD UREA NITROGEN (06/09/2020 9:20 AM EDT) BUN 18 6 - 20 mg/dL 06/09/2020 1:57 PM EDT [email or web address] Blood VENOUS BLOOD / Unknown Venipuncture / Unknown 06/09/2020 9:20 AM EDT 06/09/2020 9:20 AM EDT Tj Dc MD CHEMISTRY ORDERABLES Final Result [email or web address] [address] [place] [address] , [place] [address] * METHYLMALONIC ACID (MMA) QUANTITATIVE -REF LAB (06/09/2020 9:20 AM EDT) MMA 0.22 0.00 - 0.40 umol/L 06/11/2020 4:33 AM EDT [employer] Comment: INTERPRETIVE INFORMATION: MMA Serum/Plasma, ?Vitamin B12 Status Test developed and characteristics determined by [facility]. See Compliance Statement B: [email or web address]/CS Performed By: [facility] [address] [place] [address] Sprigger: Lyle Dong MD, MS Blood VENOUS BLOOD / Unknown Venipuncture / Unknown 06/09/2020 9:20 AM EDT 06/09/2020 9:20 AM EDT Tj Dc MD CHEMISTRY ORDERABLES Final Result Performing Organization Address [facility] de Phone Number [facility] [address] [place] [address] * VITAMIN B12 LEVEL (06/09/2020 9:20 AM EDT) Vitamin B12 311 232-1,245 pg/mL 06/09/2020 10:36 AM EDT [facility] [employer] Blood VENOUS BLOOD / Unknown Venipuncture / Unknown 06/09/2020 9:20 AM EDT 06/09/2020 9:20 AM EDT Narrative [email or web address] - 06/09/2020 10:36 AM EDT Ingestion of jose antonio doses of biotin (>5 mg/day) taken within 8 hours of drawing blood sample can interfere with this immunoassay test. Tj Dc MD CHEMISTRY ORDERABLES Final Result Performing Organization Address [facility] de Phone Number [email or web address] [address] [place] [address], [place] [address] * TSH REFLEX (06/09/2020 9:20 AM EDT) TSH Reflex 1.690 0.270 - 4.200 mcIU/mL 06/09/2020 10:26 AM EDT [email or web address] Blood VENOUS BLOOD / Unknown Venipuncture / Unknown 06/09/2020 9:20 AM EDT 06/09/2020 9:20 AM EDT Narrative [email or web address] - 06/09/2020 10:26 AM EDT Ingestion of jose antonio doses of biotin (>5 mg/day) taken within 8 hours of drawing blood sample can interfere with this immunoassay test. us Tj Dc MD CHEMISTRY ORDERABLES Final Result Performing Organization Address City/[facility]/ZIP Co de Phone Number [facility] [address] , [place] [address] * CBC (06/09/2020 9:20 AM [...] Tj Dc MD HEMATOLOGY ORDERABLES Final Result Performing Organization Address City/[facility]/ZIP Co de Phone Number [facility] [address] , [place] [address] * COMPREHENSIVE METABOLIC PANEL (06/09/2020 9:20 AM EDT) Sodium 139 136 - 145 mmol/L 06/09/2020 10:26 AM EDT [facility] Potassium 4.4 3.5 - 5.0 mmol/L 06/09/2020 10:26 AM EDT [facility] Chloride 104 98 - 107 mmol/L 06/09/2020 10:26 AM EDT [facility] Total CO2 27 22 - 29 mmol/L 06/09/2020 10:26 AM EDT [facility] Anion Gap 8 7 - 16 mmol/L 06/09/2020 10:26 AM EDT [facility] Calcium 9.2 8.6 - 10.4 mg/dL 06/09/2020 10:26 AM EDT [facility] Glucose Lvl 98 74 - 100 mg/dL 06/09/2020 10:26 AM EDT [facility] BUN 17 6 - 20 mg/dL 06/09/2020 10:26 AM EDT [facility] Creatinine 1.30 0.67 - 1.30 mg/dL 06/09/2020 10:26 AM EDT [facility] Albumin 4.1 3.5 - 5.2 gm/dL 06/09/2020 10:26 AM EDT [facility] Total Protein 6.9 6.4 - 8.3 gm/dL 06/09/2020 10:26 AM EDT [facility] Bili Total 0.4 0.1 - 1.4 mg/dL 06/09/2020 10:26 AM EDT [facility] ALT 39 <=41 U/L 06/09/2020 10:26 AM EDT [facility] AST 19 <=40 U/L 06/09/2020 10:26 AM EDT [facility] Alk Phos 62 40 - 129 U/L 06/09/2020 10:26 AM EDT [facility] GFR Afr Am 75 >=60 mL/min/1.7 3 m2 06/09/2020 10:26 AM EDT [facility] GFR Non Afr Am 65 >=60 mL/min/1.7 3 m2 06/09/2020 10:26 AM EDT [facility] Comment: This estimated GFR [...] MD CHEMISTRY ORDERABLES Final Result [facility] [address] , [place] [address] [facility] [address] [place] [id number] documented in this encounter Visit Diagnoses Diagnosis Postconcussion syndrome Memory loss documented in this encounter
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
--- OUTSIDE RECORDS SUMMARY | 2024-09-12 22:52 | XMS_ITS | Encounter Summary ---
Author Organization [facility] [place] [address] Care Team Providers Care Family Court Registrar Name Role Phone Unavailable Primary Care Provider Unavailabl e Encounter Details Date Type Department Care Team (Latest Contact Info) Description 06/25/2020 Travel Social History Tobacco Use Types Packs/Day [...]
--- OUTSIDE RECORDS SUMMARY | 2024-09-12 22:52 | XMS_ITS | Encounter Summary ---
Author Organization [facility] [place] [address] Care Team Providers Care Filing Or Registry Clerk Name Role Phone Unavailable Primary Care Provider Unavailabl e Encounter Details Date Type Department Care Team (Latest Contact Info) Description 03/04/2020 Travel Social History Tobacco Use Types Packs/Day [...] have Coronavirus / COVID-19? No / Unsure 03/04/2020 8:21 AM EDT documented as of this encounter Plan of Treatment Not on file documented as of this encounter Visit Diagnoses Not on filedocumented in this encounter
--- OUTSIDE RECORDS SUMMARY | 2024-09-12 22:52 | XMS_ITS | Encounter Summary ---
Author Organization [facility] [place] [address] Care Team Providers Care Assembly Riveter Name Role Phone Unavailable Primary Care Provider Unavailabl e Encounter Details Date Type Department Care Team (Latest Contact Info) Description 03/12/2020 Travel Social History Tobacco Use Types Packs/Day [...]
--- NOTE | 2024-09-12 23:11 | XR_ITS ---
PROCEDURE INFORMATION: Exam: XR Chest Exam date and time: 09/12/2024 11:27 PM Age: 54 years old Clinical indication: Pain; Chest pressure; Additional info: Chest pain TECHNIQUE: Imaging protocol: Radiologic exam of the chest. Views: 2 views. COMPARISON: CT CERVICAL SPINE WO CON 08/19/2021 11:37 AM FINDINGS: Lungs: Unremarkable. No consolidation. Pleural spaces: Unremarkable. No pleural effusion. No pneumothorax. Heart/Mediastinum: Unremarkable. No cardiomegaly. Bones/joints: Unremarkable. IMPRESSION: No acute findings.
--- NOTE | 2024-09-12 23:24 | ED_ITS ---
Discharge Plan Disposition Patient Disposition: Home, Self-Care Condition: Good Prescriptions Prescriptions: No Action furosemide 40 mg tablet 40 mg PO DAILY Qty: 30 2RF sildenafil 50 mg tablet 50 mg PO DAILY PRN (Reason: sexual activity) Qty: 20 5RF Rx Instructions: administer 30 minutes to 4 hours before activity triamterene-hydrochlorothiazid 37.5-25 mg tablet See Rx Instructions .ROUTE .COMPLEX Qty: 30 5RF Dose Instruction: Take 1 Tablet by mouth once daily. Rx Instructions: Take 1 Tablet by mouth once daily. valsartan 160 mg tablet 80 mg PO DAILY Qty: 15 5RF Referrals Follow up/Referrals: Julissa Steward APRN [Primary Care Provider] - See instructions Jose Rafael Foreman MD [Staff Physician] - See instructions (R side cp, negative ER workup, hx sternal fx 2mo ago) Activity Restrictions/Add. Instructions Additional Instructions/Restrictions: You were evaluated in the ER and are appropriate for discharge at this time. Continue taking your home medications as prescribed. Please make an appointment with cardiology on Sunday for immediate reevaluation. Return to the ER with new, worsening, or otherwise concerning symptoms. Clinical Impressions Clinical Impression: Right-sided chest pain Stand Alone Forms Stand Alone Forms: Work/School Release Print Language Print Language: New Zealander Discharge ED Provider: Michael Chen [facility] General Chief Complaint: Chest Pain Stated Complaint: chest pain Time Seen by Provider: 09/12/24 22:57 Mode of Arrival: Ambulatory Source of Information: Patient Limitations: No Limitations Description of Symptoms (Recalled from ER Triage Doc. by RN): Pt ambulatory to ED with cc of chest pain. 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 Pt states having a sternal fx approx 2 months ago. Pt describes the chest pain as sharp on the right side that radiates to back and teeth. Pt states taking 800 mg of Ibuprofen and 325 mg of Aspirin [employer]INE[employer]. Pt states having pain on expiration but denies having SOA. History of Present Illness HPI narrative: 54-year-old male with a history of of hypertension, hyperglycemia, hyperlipidemia on prescribed medications which include furosemide presents to the ER for chest pain in the right chest that started approximately 7 hours prior to arrival. Patient was trampled by a bull and had a sternal fracture approximately 2 months ago. He states the pain in the right side of his chest radiates to his back into his teeth. He states he had this pain once in the past and it was when he was trampled by the bull. Family at bedside states patient was given 800 mg of ibuprofen and 325 of aspirin prior to arrival. Patient reports improvement in symptoms since they started. Patient reports pain throughout the expiratory cycle but states deep breathing does not cause worsening pain. He also states his chest pain actually improves with exertion/ambulation. Patient reports his activity level and activities today were not outside of the normal. He reports he has been taking all his medications as prescribed. He has not had any new cough, fevers, congestion, nausea, vomiting, diarrhea, dizziness, headache, numbness, tingling, weakness, or other associated symptoms. Denies history of blood clot, no new swelling in the legs Related Data Previous Rx's ?Medication ?Instructions ?Recorded sildenafil 50 mg tablet 50 mg PO DAILY PRN sexual activity 12/13/23 #20 tabs triamterene 37.5 See Rx Instructions .Route 12/13/23 mg-hydrochlorothiazide 25 mg tablet .COMPLEX #30 tabs valsartan 160 mg tablet 80 mg (1/2 x 160 mg) PO DAILY #15 12/13/23 tabs furosemide 40 mg tablet 40 mg PO DAILY #30 tabs 03/13/24 Allergies Allergy/AdvReac Type Severity Reaction Status Date / Time No Known Allergies Allergy Verified 03/13/24 15:20 [facility] Disclaimer: The information contained in this section may have been updated after the patient was seen, as this information can be updated by other users. Medical History (Updated 09/13/24 @ 00:26 by Tucker Garrido MD) SOBOE (shortness of breath on exertion) Edema of both upper extremities Bilateral lower extremity edema Male erectile disorder Hyperlipidemia Localized edema Tobacco abuse BMI 39.0-39.9,adult Concussion Hypertension Facial contusion Nasal fracture Cellulitis of left hip Surgical History History of wisdom tooth extraction Family History Other Hyperlipidemia Hypertension Social History Smoking Status: Current every day smoker alcohol intake: never current occupational status: other Other Medical History Have you received the Flu Vaccine for this season: No Have you received the Pneumonia Vaccine: No ROS Obtained: Yes Systems reviewed as appropriate & no additional complaints except as documented ROS per HPI Physical Exam General General appearance: alert and in no apparent distress Head Head exam: atraumatic and normocephalic Eye Eye exam: Present PERRL and EOMI ENT ENT exam: Present mucous membranes moist Neck Neck exam: Present normal inspection and full ROM Chest Chest inspection: Present symmetric chest wall rise Respiratory Respiratory exam: Present normal lung sounds bilaterally; Absent respiratory distress, wheezes or stridor Cardiovascular Cardiovascular exam: Present regular rate and normal rhythm Abdominal Exam Abdominal exam: Present soft; Absent distention or tenderness Extremities Exam Extremities exam: Present full ROM and edema (Mild +1 pitting edema bilateral lower extremities) Neurological Exam Neurological exam: Present alert and oriented X3; Absent motor sensory deficit Psychiatric Psychiatric exam: Present normal affect and normal mood Skin Skin exam: Present warm and dry HEART Score HEART Score HEART Score assessment performed?: Yes History (anamnesis): Slightly suspicious ECG: Normal Age: 45-65 years Risk factors: 3 or more risk factors Troponin: </= normal limit HEART Score: 3 Critical Care Critical Care Time Critical Care Time: No Medical Decision Making Medical Records Medical records reviewed: Yes I reviewed the patient's medical records. MR Comment: Most recent family medicine progress note was reviewed where patient was evaluated for bilateral lower extremity edema as well as upper extremity edema. He had also reported shortness of breath and chronic cough at that time. They increased his furosemide to 40 mg daily. Jm Inquiry Pt receiving controlled substance: No Vital Signs Vital Signs: 09/12/24 22:39 09/12/24 22:44 09/12/24 22:44 Temperature 98.0 F 98.0 F Temperature Source Oral Oral Pulse Rate 91 H 82 Pulse Rate [Left Radial] 91 H Respiratory Rate 22 17 Blood Pressure 139/88 Blood Pressure [Right Arm] 145/84 H Blood Pressure Mean [Right Arm] 104 Blood Pressure Source Blood Pressure Source [Right Arm] Automatic Cuff Blood Pressure Position Blood Pressure Position [Right Arm] Sitting 02 Sat by Pulse Oximetry 97 97 Oxygen Delivery Method Room Air 09/13/24 00:37 Temperature 98.0 F Temperature Source Oral Pulse Rate 81 Pulse Rate [Left Radial] Respiratory Rate 20 Blood Pressure 126/73 Blood Pressure [Right Arm] Blood Pressure Mean [Right Arm] Blood Pressure Source Automatic Cuff Blood Pressure Source [Right Arm] Blood Pressure Position Sitting Blood Pressure Position [Right Arm] 02 Sat by Pulse Oximetry Oxygen Delivery Method Room Air Lab Data Labs: Lab Results 09/12/24 22:43: WBC 9.7, RBC 4.85, Hgb 15.8, Hct 44.8, MCV 92.3, MCH 32.6 H, MCHC 35.3, RDW 13.1, Plt Count 330, MPV 7.9, Neut % (Auto) 58.4, Lymph % (Auto) 30.9, Reagan % (Auto) 7.7, Eos % (Auto) 1.8, Baso % (Auto) 1.3, Neut # (Auto) 5.7, Lymph # (Auto) 3.0, Reagan # (Auto) 0.8, Eos # (Auto) 0.2, Baso # (Auto) 0.1, PT 10.3, INR 0.91, Sodium 138, Potassium 3.5, Chloride 99, Carbon Dioxide 35 H, Anion Gap 7.5, BUN 20, Creatinine 1.40 H, Estimated Creat Clear 62, Estimated GFR 53 L, Est GFR ( Amer) 64, Glucose 109 H, Calcium 9.1, Total Bilirubin 0.4, AST 48, ALT 61, Alkaline Phosphatase 52, Troponin I < 0.01, NT-Pro-B Natriuret Pep < 20.0, Total Protein 7.3, Albumin 4.1, Globulin 3.2, Albumin/Globulin Ratio 1.3, HIV 1&2 Antibody Rapid Nonreactive 09/12/24 22:43 09/12/24 22:43 Response Orders (Tests/Meds): ED MEDICATIONS Discontinued Medications Generic Name Dose Route Start Last Admin Trade Name Freq PRN Reason Stop Dose Admin Acetaminophen 1,000 mg 09/12/24 23:42 09/12/24 23:54 Acetaminophen 500mg Tab PO 09/12/24 23:43 1,000 mg ONCE ONE Administration Belladonna Alkaloids 60 ml 09/12/24 23:22 09/12/24 23:27 Belladonna Alkaloids 60 Ml Ml PO 09/12/24 23:23 60 ml ONCE ONE Administration ORDERS Category Date Time Status XR chest 2V Stat Exams 09/12/24 23:11 Completed Complete Blood Count Auto Diff Stat Lab 09/12/24 22:43 Completed Comprehensive Metabolic Panel Stat Lab 09/12/24 22:43 Completed HIV (1&2) Antibody Rapid Stat Lab 09/12/24 22:43 Completed Hep C Ab with Reflex to RNA Stat Lab 09/12/24 22:43 Received NT Pro Brain Natriuretic Pep. Stat Lab 09/12/24 22:43 Completed Prothrombin Time INR Stat Lab 09/12/24 22:43 Completed Troponin I Stat Lab 09/12/24 23:11 Completed MDM Narrative Medical Decision Narrative: In summary, this 54-year-old male with comorbidities described in HPI presents to the emergency department today with chest pain. On initial evaluation patient is hemodynamically stable, afebrile, chest pain has improved since it started. Cardiopulmonary exam is reassuring aside from mild +1 bilateral lower extremity pitting edema. Differential diagnosis includes but is not limited to ACS, arrhythmia, muscle spasm, musculoskeletal pain given patient's history of sternal fracture, esophageal spasm. Based on these concerns, I ordered serum labs, cardiac workup, chest x-ray. Initial ECG personally interpreted demonstrates sinus rhythm, rate 86, normal axis, normal [place] and QTc, baseline is skewed by artifact, difficult to interpret however there is no obvious STEMI. Repeat ECG approximately 1 hour later was personally interpreted demonstrating normal sinus rhythm, rate 79, normal axis, normal [place] and QTc, artifact is resolved and I do not appreciate any findings of STEMI. Patient received GI cocktail for treatment given history of reflux on omeprazole. Labs personally reviewed demonstrate no leukocytosis or anemia, PT/INR normal, CMP with creatinine 1.4, similar to previous, no KATHERYN, BNP undetectable, initial troponin also undetectably low at less than 0.01, this is significantly reassuring against cardiac etiology since patient symptoms have been going on for more than 6 hours and his troponin is undetectable. Chest x-ray personally interpreted does not demonstrate any acute intrathoracic abnormality, see radiology read for final interpretation. On reassessment patient's chest pain has resolved at rest, he states only time it is mildly present as if he lays back. With reassuring workup I believe he is appropriate for discharge. I gave him referral to cardiology for outpatient follow-up given his risk factors, he has close family who are going to continue to monitor him as well. Patient was given instructions on symptomatic management, follow up instructions, and return precautions for the emergency department. Patient indicated understanding and was discharged in stable condition.
--- NOTE | 2024-09-12 23:26 | ECG_ITS ---
APPROVED REPORT Exam: Resting ECG HR:79 bpm ECG Measurements Heart Rate 79 AXES IN 136 P 55 QRSd 98 QRS 57 QT 376 T 56 QTc 411 Conclusion SINUS RHYTHM NORMAL ECG Electronically signed by : MIREILLE JULIO, 09/13/2024 17:25:13
[2024-09-12] MEDS: BELLADONNA ALKALOIDS 60 ML ML PO (23:27)
[2024-09-12 23:28] LABS: Basophils # 0.1 K/mm3 (0-0.2); Basophils % 1.3 % (0.1-2.0); Eosinophils # 0.2 K/mm3 (0.0-0.4); Eosinophils % 1.8 % (0.1-12.0); Hematocrit 44.8 % (42.0-52.0); Hemoglobin 15.8 g/dL (14.1-18.0); Lymphocytes % 30.9 % (10-50); Mean Corpuscular HGB Conc 35.3 g/dL (31.8-35.4); Mean Corpuscular Hemoglobin 32.6 pg (27.0-31.2); Mean Corpuscular Volume 92.3 fl (80-94); Mean Platelet Volume 7.9 fl (7.4-10.4); Monocytes # 0.8 K/mm3 (0.1-1.0); Monocytes % 7.7 % (1.7-9.3); Neutrophils # 5.7 K/mm3 (1.8-7.8); Neutrophils % 58.4 % (37.0-80.0); Platelet Count 330 K/mm3 (142-424); Red Blood Count 4.85 M/mm3 (4.60-6.20); Red Cell Distribution Width 13.1 % (11.5-17.5); White Blood Count 9.7 K/mm3 (4.8-10.8)
[2024-09-12 23:33] LABS: Alanine Aminotransferase 61 U/L (12-78); Albumin Level 4.1 g/dl (3.5-5.0); Albumin/Globulin Ratio 1.3 (1.1-1.8); Alkaline Phosphatase 52 U/L (38-126); Anion Gap 7.5 mEq/L (5-15); Aspartate Amino Transferase 48 U/L (17-59); Bilirubin,Total 0.4 mg/dl (0.2-1.3); Blood Urea Nitrogen 20 mg/dl (9-20); Calcium 9.1 mg/dl (8.4-10.2); Carbon Dioxide 35 mmol/L (22.0-30.0); Chloride 99 mmol/L (98-107); Creatinine Clearance Estimated 62 mL/min (50-200); Estimated Glomerular Filt Rate 53 ml/min (>60); GFR (African American) 64 ML/MIN (>60); Globulin 3.2 g/dL (1.3-3.2); Glucose 109 mg/dl (74-100); Potassium 3.5 mmoL/L (3.5-5.1); Sodium 138 mmol/L (136-145); Total Protein,Serum 7.3 g/dl (6.3-8.2)
[2024-09-12 23:34] LABS: HIV (1&2) Antibody Rapid NONREACTIVE (NONREACTIVE)
[2024-09-12 23:35] LABS: INR 0.91 (0.9-1.1); Prothrombin Time 10.3 seconds (10.1-12.5)
[2024-09-12 23:44] LABS: NT Pro Brain Natriuretic Pep. < 20.0 pg/mL (0-125)
[2024-09-12 23:45] LABS: Troponin I < 0.01 ng/ml (0.00-0.034)
[2024-09-12] MEDS: ACETAMINOPHEN 500MG TAB 1000 MG PO (23:54)
[2024-09-13 00:37] VITALS: BP 126/73; PULSE 81; RESP 20; TEMP 36.7; O2SAT 94
[2024-09-14 09:24] LABS: HCV Ab Non Reactive (Non Reactive)
== END 2024-09-13 00:50 | disposition home or self-care (01) ==
PROVIDERS: Emergency Medicine; Emergency Provider Student in an Organized Health Care Education/Training Program; PCP Nurse Practitioner
DX: R07.9 Chest pain, unspecified (principal)
CPT/HCPCS: 71046; 80053; 83880; 84484; 85025; 85610; 86803; 87389; 93005; 99284

== ENCOUNTER 2025-07-30 12:28 | Outpatient (CLI) | payer MEDICAID, SELFPAY ==
[2025-07-30 17:18] LABS: Hematocrit 44.8 % (42.0-52.0); Hemoglobin 15.4 g/dL (14.1-18.0); Immature Granulocytes % 0.2 %; Mean Corpuscular HGB Conc 34.4 g/dL (31.8-35.4); Mean Corpuscular Hemoglobin 31.8 pg (27.0-31.2); Mean Corpuscular Volume 92.4 fl (80-94); Nucleated Red Blood Cells % 0 %; Platelet Count 311 K/mm3 (142-424); Red Blood Count 4.85 M/mm3 (4.60-6.20); Red Cell Distribution Width-SD 42.0 fL; White Blood Count 6.1 K/mm3 (4.8-10.8)
[2025-07-30 17:35] LABS: Hemoglobin A1C 5.8 % (4.0-6.0)
[2025-07-30 17:50] LABS: Alanine Aminotransferase 42 U/L (12-78); Albumin Level 3.6 g/dl (3.5-5.0); Albumin/Globulin Ratio 1.3 (1.1-1.8); Alkaline Phosphatase 60 U/L (38-126); Anion Gap 9.2 mEq/L (5-15); Aspartate Amino Transferase 33 U/L (17-59); Bilirubin,Total 0.7 mg/dl (0.2-1.3); Blood Urea Nitrogen 19 mg/dl (9-20); Calcium 9.0 mg/dl (8.4-10.2); Carbon Dioxide 30 mmol/L (22.0-30.0); Chloride 102 mmol/L (98-107); Cholesterol 142 mg/dl (140-200); Creatinine,Serum 1.00 mg/dl (0.66-1.25); Estimated Glomerular Filt Rate 78 ml/min (>60); GFR (African American) 95 ML/MIN (>60); Globulin 2.8 g/dL (1.3-3.2); Glucose 113 mg/dl (74-100); HDL Cholesterol 29 mg/dl (40-60); Potassium 4.2 mmoL/L (3.5-5.1); Sodium 137 mmol/L (136-145); Total Protein,Serum 6.4 g/dl (6.3-8.2); Triglycerides 186 mg/dl (30-150)
[2025-07-30 18:20] LABS: Thyroid Stimulating Hormone 1.37 uIU/mL (0.465-4.68)
--- OUTSIDE RECORDS SUMMARY | 2025-08-03 12:31 | XMS_ITS | Clinical Summary ---
Author Organization [facility] Address [address] [place] [address] Care Team Providers Care Service Trainer Name Role Phone Unavailable Primary Care Provider [...] Tdap) 1983 Colonoscopy 2017 PSA YEARLY 2022 Pneumococcal 50+ (1 of 1 - PCV) 2022 Shingrix (#1) 2022 Influenza Vaccine (#1) 2025 RSV Vaccine (60+ or ) (1 - [...]
--- OUTSIDE RECORDS SUMMARY | 2025-08-03 12:32 | XMS_ITS | Clinical Summary ---
Author Organization Healthcare Address [address] [place] [address] Care Team Providers Care Taffy Candy Maker Name Role Phone Duane Flores MD Unavailable [...] mg tablet One tablet at bedtime Active Social History Tobacco Use Types Packs/Day [...] Date Last Done Comments [facility]-Depression Screening 1972 [facility]-/Child/Adol SDOH Screenings 1972 [facility]- SDOH Screenings 1990 [facility]-Adult SDOH Screenings 1990 [facility]-DTaP,Tdap,and Td Vaccine s (1 - Tdap) 1991 [facility]-Hepatitis B Vaccines (1 of 3 - 19+ 3-dose series) 1991 CT Colonography 2017 FIT-DNA 2017 FIT 2017 FOBT 2017 Sigmoidoscopy 2017 Colonoscopy 08/11/2021 08/11/2011 [facility]-Colorectal Cancer Screening 08/11/2021 [facility]-Pneumococcal Vaccine: 50 + Years (1 of 1 - PCV) 2022 [facility]-Zoster Vaccines (1 of 2) 2022 [id number] Vaccine (1 - 20 24-25 season) 2025 [facility]-Influenza Vaccine (#1) 2025 HPV Vaccines Aged Out No longer eligi ble based on patient's age to complete this topic [facility]-HIB Vaccines Aged Out No longer e [...] Procedure Name Priority Date/Time Associated Diagnosis Comments COLONOSCOPY 08/11/2011 from Last 3 Months or Most Recently Relevant to Health Maintenance Results * COLONOSCOPY (08/11/2011) Anatomical Region Laterality Modality Endoscopy Narrative 08/11/2011 Ordered by an unspecified provider. us Historical Provider GI PROCEDURE ORDERABLES Nessa l Result from Last 3 Months or Most Recently Relevant to Health Maintenance Care Teams Taffy Candy Maker Relationship Specialty Start Date End Date Duane Flores MD Resident Neurology 01/02/22
--- OUTSIDE RECORDS SUMMARY | 2025-08-03 12:32 | XMS_ITS | Clinical Summary ---
Author Organization [facility] Address [address] [place] [address] Phone Care Team Providers Care Drug Safety Scientist Name Role Phone Unavailable Primary Care Provider [...] 90 09/23/2020 1:52 PM EST Temperature 36.7 C (98 F) 09/23/2020 1:48 PM EST Respiratory Rate 17 [...] Date Last Done Comments Annual Wellness Exam 1975 DTaP/TDaP/Td (1 - Tdap) 1991 Hepatitis B Vaccine (1 of 3 - 19+ 3-dose series) 1991 Cologuard 2017 Colon Cancer Screening 2017 Colonoscopy 2017 FIT 2017 Sigmoidoscopy 2017 Virtual Colonography 2017 Pneumococcal Vaccine 50+ (1 of 1 - PCV) 2022 Zoster (1 of 2) 2022 COVID-19 Vaccine (1 - 2024-2 6 season) 2025 Influenza Vaccine (#1) 2025 Meningococcal B Vaccine Aged Out No l onger eligible based on patient's age to complete this topic Insurance [facility] [place] [id number] [facility] [employer] [place] [employer] COMP on file [facility] * Guarantor: Angel Mcgraw Account Type Relation to Patient Date of Phone Billing Address [place] Personal Family Self
--- OUTSIDE RECORDS SUMMARY | 2025-08-03 12:32 | XMS_ITS | Clinical Summary ---
[facility] Organization [facility] Address [address] [place] [address] Care Team Providers Care Inspector Multifocal Lens Name Role Phone Tj Black MD Primary Care Provider [phone] Allergies No known active allergies Social History [...] 102 07/12/2022 7:17 PM EDT Temperature 36.6 C (97.9 F) 07/12/2022 7:17 PM EDT Respiratory Rate 18 07/12/2022 7:17 PM EDT Oxygen Saturation 97% 07/12/2022 7:17 PM EDT Inhaled Oxygen Concentration - - Weight 113 kg (250 lb) 07/12/2022 7:17 PM EDT Height 177.8 cm (5' 10 ) 07/12/2022 7:17 PM EDT Body Mass Index 35.87 07/12/2022 7:17 PM EDT Plan of Treatment Health Maintenance Due Date Last Done Comments ANNUAL PHYSICAL 1972 HEPATITIS C SCREENING 1972 TDAP/TD VACCINES (1 - Tdap) 1991 COLOGUARD 2017 COLON CANCER SCREENING [address] COLONOGRAPHY 2017 FECAL OCCULT BLOOD TEST 2017 FIT Testing (1 year) 2017 COLONOSCOPY 08/11/2021 08/11/2011 COLORECTAL CANCER SCREENING 08/11/2021 Pneumococcal Vaccine 50+ (1 of 1 - PCV) 2022 ZOSTER VACCINE (1 of 2) 2022 INFLUENZA VACCINE 05/15/2025 Insurance Care Teams Inspector Multifocal Lens Relationship Specialty Start Date End Date Tj Black MD [address] [place] [address] [place] [id number] PCP - General Family Medicine 07/12/22
== END 2025-07-30 23:59 ==
LOC: LAB.DROPOF 08-03 12:29
PROVIDERS: PCP Nurse Practitioner; Visit Provider Nurse Practitioner
DX: E78.5 Hyperlipidemia, unspecified (principal); Z12.5 Encounter for screening for malignant neoplasm of prostate; I10 Essential (primary) hypertension; R73.9 Hyperglycemia, unspecified
CPT/HCPCS: 80053; 80061; 82043; 82570; 83036; 84443; 85025; G0103